=== PATIENT | male | born 1970 | race Caucasian/White ===

== ENCOUNTER → 2023-12-14 13:49 | Outpatient (REF) | payer OTHER, SELFPAY | LOC: HWRCS 13:49 | PROVIDERS: ATTENDING PHYSICIAN Internal Medicine Cardiovascular Disease; FAMILY PHYSICIAN Family Medicine | DX: I10 Essential (primary) hypertension (principal); Z95.810 Presence of automatic (implantable) cardiac defibrillator; I42.8 Other cardiomyopathies | CPT/HCPCS: 93306 ==

== ENCOUNTER 2025-04-25 17:15 | Inpatient (IN) | payer OTHER, SELFPAY ==
[2025-04-25] VITALS (9 sets, daily range): BP systolic 115–140; BP diastolic 68–89; PULSE 98; BMI 35.0; BMI 35.5
[2025-04-25 12:58] LABS: Hematocrit 51.8 % (39.0-52.0); Hemoglobin 17.6 g/dL (13.0-18.0); Mean Corp Hgb Conc. 34.0 g/dL (33.0-37.0); Mean Corpuscular Volume 85.5 fL (80.0-94.0); Platelet Count 177 10^3/uL (130-400); Red Cell Dist. Width 14.4 % (11.5-14.5)
[2025-04-25 13:14] LABS: Nucleated Red Blood Cells % 0 % (-)
[2025-04-25 13:23] LABS: ALT (SGPT) 28 U/L (0-50); AST (SGOT) 49 U/L (17-59); Albumin 4.2 g/dl (3.5-5.0); Alkaline Phosphatase 133 U/L (38-126); Blood Urea Nitrogen 26 mg/dl (9-20); Calcium 9.0 mg/dl (8.4-10.2); Carbon Dioxide 28 mmol/L (22-30); Chloride 96 mmol/L (98-107); Glucose 167 mg/dl (70-99); Potassium 3.8 mmol/L (3.5-5.1); Sodium 132 mmol/L (135-145); Total Protein 8.3 g/dl (6.3-8.2); eGFR 50.88
[2025-04-25 13:24] LABS: COVID-19 Antigen Negative (Negative)
--- NOTE | 2025-04-25 16:07 | ED.GENMED ---
History of Present Illness
General
Chief Complaint: Fever
Source: patient, spouse and family
Exam Limitations: none
Time Seen by Provider: 04/25/25 15:10
Nursing documentation reviewed up to this point in time: agreed with
History of Present Illness
History of Present Illness:
54-year-old male past medical history of CHF, hypertension, diabetes presenting to the concerns of redness and swelling progressing from a left-sided foot wound that has been followed with wound care 3 times per week over the past few months. He
denies increasing redness swelling and warmth of the past few days. Significant he worsened today. Now into the thigh and groin area. Also does feel some generalized weakness fatigue and chills.
Past History
Past History
ED Past Medical History: NIDDM, Other (Chronic right lower leg infection) and Other (Nonischemic cardiomyopathy EF of 30%, hypertension, sleep apnea, appendectomy, previous meniscectomy, hernia repair)
ED Past Surgical History: Other (hernia)
Social History
Tobacco: Smoker (Smokes cigars)
Alcohol: Occasional
Drug: None
Employment: Employed
Family History
Family History: Other (No Significant disease according to the patient)
Review of Systems
Review of Systems
Allergies reviewed?: Yes
All Other Systems: ROS reviewed and negative except as documented in HPI and ROS
Phy Exam
Physical Exam
Physical Exam:
GENERAL: Alert , in no apparent distress
EYE: pupils equal and reactive
NECK: Supple, no significant adenopathy.
ENT: o/p clr, mmm.
CARDIAC: Regular rate and rhythm .
LUNGS: Clear breath sounds bilaterally, no acute respiratory distress, no wheezes/rales/rhonchi
ABDOMEN: Soft, without focal tenderness, no r/g, no cvat
NEUROLOGICAL: Alert and oriented, no focal neuro deficits
SKIN: Redness welling warmth left leg seems to be emanating from a ulcer and wound from the left lateral foot at the midfoot with streaking into the hendrix and medial thigh ending at the groin area. Minimal discomfort but patient does have history of
neuropathy. Warm and dry, skin intact.
MUSCULOSKELETAL: No edema, well perfused.
PSYCH: Normal and appropriate interaction.
Sepsis
Sepsis Screening
Sepsis Assessment: Sepsis
Sepsis Screen
Sepsis Screen: Sepsis
Date: 04/25/25
Time: 16:11
Course
Orders/Labs/Results
Orders:
Orders
04/25/25 12:46
COVID-19 Antigen Urgent
Source: Nasal Swab
Complete Blood Count/With Diff Urgent
Comprehensive Metabolic Panel Urgent
Lactic Acid Q4H
Comment: ON ICE, CANCEL 2ND ORDER IF FIRST LACTIC ACID LEVEL <2
Lactic Acid Q4H
Comment: ON ICE, CANCEL 2ND ORDER IF FIRST LACTIC ACID LEVEL <2
Blood Culture Q20M
NEGRITO Source: Blood/Venous
Specimen Description:
Comment: Urgent from separate sites. If patient screens positive for possible sepsis
INF RAPID [Influenza A+B Rapid Molecular] Urgent
NEGRITO Source: Nasal Swab
Specimen Description:
04/25/25 15:10
Blood Culture Q20M
NEGRITO Source: Blood/Venous
Specimen Description:
Comment: Urgent from separate sites. If patient screens positive for possible sepsis
04/25/25 15:59
Wound Culture [Wound/Abscess/Other Culture] Urgent
NEGRITO Source: Ulcer
Specimen Description:
04/25/25 16:00
Vancomycin [Vancocin] 2,000 mg 0.9% Sodium Chloride 500 ml [Nss] 500 ml IV NOW
04/25/25 16:01
0.9% Sodium Chloride 500 ml [Nss] 500 ml IV BOLUS
04/25/25 16:45
Lactic Acid Urgent
Abnormal Lab Results
04/25/25 04/25/25
12:46 12:46
WBC 23.7 H 10^3/uL
(4.8-10.8)
Abs Immat Gran (auto) 0.1 H 10^3/uL
(0-0.05)
Absolute Neuts (auto) 22.1 H 10^3/uL
(1.4-6.5)
Absolute Lymphs (auto) 0.4 L 10^3/uL
(1.2-3.4)
Absolute Monos (auto) 1.1 H 10^3/uL
(0.1-0.6)
Neutrophils % 92.8 H %
(42.2-75.2)
Lymphocytes % 1.6 L %
(20.5-51.1)
Sodium 132 L mmol/L
(135-145)
Chloride 96 L mmol/L
(98-107)
BUN 26 H mg/dl
(9-20)
Creatinine 1.6 H mg/dL
(0.7-1.3)
Glucose 167 H mg/dl
(70-99)
Lactic Acid 2.9 H mmol/L 2.9 H mmol/L
(0.7-2.0) (0.7-2.0)
Total Bilirubin 3.1 H mg/dl
(0.2-1.3)
Alkaline Phosphatase 133 H U/L
(38-126)
Total Protein 8.3 H g/dl
(6.3-8.2)
04/25/25 12:46
04/25/25 12:46
Vital Signs
Initial and Last Documented VS:
Initial Vital Signs
Temp Pulse Resp BP Pulse Ox
100.3 F 105 22 120/68 95
04/25/25 12:30 04/25/25 12:30 04/25/25 12:30 04/25/25 12:30 04/25/25 12:30
Last Documented Vital Signs
Temp Pulse Resp BP Pulse Ox
98.5 F 109 17 132/80 95
04/25/25 15:14 04/25/25 15:30 04/25/25 15:30 04/25/25 15:10 04/25/25 15:30
MDM/Problems Addressed
MDM/Problems Addressed:
54-year-old male presenting to the emergency department today with concerns of redness welling warmth progressing up the left lower extremity over the past 3 days or so. Does of a chronic wound but denies any significant redness or warmth preceding
the last few days. Mildly tachycardic on arrival temperature of 100.3 white count of 23.7 lactic acid elevated at 2.9 patient was started on fluids and IV antibiotics for likely sepsis. Plan to admit for further treatment and monitoring.
*Pulse Oximetry
SaO2: 95
Oxygen Mode of Delivery: Room air
Patient hypoxic: no (95)
*Critical Care Note
Total Time (30-74mins, 75-104mins- exclusive of procedures): Not Applicable
ED Attending Note
-
Portions of this chart may have been created with voice recognition software.� Occasional wrong word or��sound alike� substitutions may have occurred due to the inherent limitations of voice recognition software.
Discharge Plan
Departure
Patient Disposition: Admit
Date of Disposition: 04/25/25
Time of Disposition: 16:11
Admit to: Med/Surg
Admit to doctor: Kamilla
Presentation/result/management discussed w/ accepting MD/DO: Hospitalist
Patient with high blood pressure during this ER visit?: No
Condition: Good
Covid-19: Not Applicable
Discharge Problem:
Cellulitis of leg
Prescriptions:
No Action
spironolactone 25 MG tablet
25 mg PO DAILY
multivitamin with folic acid [Tab-A-Ellie] 1 TABLET tablet
1 tab PO DAILY
furosemide 40 MG tablet
40 mg PO BID@0800,1600 Qty: 60 11RF
Rx Instructions:
Increase Lasix to 40 mg twice a day
valsartan [Diovan] 160 MG capsule
160 mg PO DAILY Qty: 30 11RF
Rx Instructions:
Increase Diovan to 160 mg (two 80 mg tablets) once a day
metoprolol succinate 100 MG tablet extended release 24 hr
100 mg PO DAILY Qty: 30 11RF
Rx Instructions:
Increase Toprol XL (metoprolol succinate) to 100 mg (two 50 mg tablets) once a day
amiodarone [Pacerone] 200 MG tablet
200 mg PO BID Qty: 60 0RF
Rx Instructions:
Take amiodarone 200 mg twice a day for 1 month then reduce to 200 mg daily thereafter
apixaban [Eliquis] 5 MG tablet
5 mg PO BID Qty: 60 11RF
metoprolol tartrate 50 MG tablet
50 mg PO QPM
Referrals:
Tristen Arevalo DO [Family Provider, Family Practice]
Interventions
Interventions:
*Risk Screen - Suicide Last Done: 04/25/25 12:30
*General Assessment Last Done: 04/25/25 12:30
*ED Influenza Vaccine History Last Done: 04/25/25 12:30
Discharge Date and Time
Print Language: TURKMEN
--- NOTE | 2025-04-25 16:24 | HPS.HSE ---
Family Physician
-
Family Physician: Tristen Arevalo
Chief Complaint
-
L foot wound
Worsening L leg swelling, redness and pain
History of Present Illness
HPI: 54-year-old male with past medical history of CHF s/p ICD, hypertension, NIDDM, HDL, A-fib on Eliquis; p/w progressive redness, swelling and pain of L foot, now to his thigh and groin area.
He has L foot wound and has been following with wound care 3 times per week over the past few months at [facility].
He also c/o generalized weakness, fever and chills. Denies to chest pain, shortness of breath, abdominal pain etc.
Medical History
Past Medical History
Past Medical History: Reports Other
Additional Past Medical History:
CHF s/p ICD,
hypertension,
NIDDM,
HDL,
A-fib on Eliquis
Past Surgical History: Reports Other
Additional Past Surgical History:
lateral L foot I/D
Social History
Tobacco: Former Smoker
Alcohol: Occasional
Personal: Partner
Family History
Family History: Not pertinent
Allergies / Home Medications
Allergies reflects when Allergies were last updated in [facility].
Home Medications with original date entered in [facility]
Allergy/Medication List:
Medications on admission are unable to be verified or confirmed at this time.
Review of Systems
-
Constitutional: Reports See HPI, Fever, Fatigue and Chills
Skin: Reports See HPI and Other (worsening LLE swelling, pain and erythema)
Physical Exam
Vital Signs
Vital Signs
Temp Pulse Resp BP Pulse Ox
36.9 C 109 17 132/80 95
04/25/25 15:14 04/25/25 15:30 04/25/25 15:30 04/25/25 15:10 04/25/25 16:10
Physical Exam
General: Well Developed, Well Nourished, No Apparent Distress, Conversant and Obese
HEENT: NormoCephalic, Moist mucous membranes and Atraumatic
Respiratory: Clear and Non Labored Respirations; No Accessory Resp Muscle Use
Cardiac: S1/S2, Regular Rhythm and Tachycardia; No Murmur or Rub
GI: Soft, Non Tender, Non Distended and Normal Bowel Sounds; No Organomegaly
Rectal: Deferred by Provider
Musculoskeletal: No Clubbing, No Cyanosis and Edema, Left Lower Extremity
Skin: Warm and Rash (L leg redness )
Neuro: Awake and Alert
Psych: Calm and Intact Judgment/Insight
Laboratory Results
-
04/25/25 12:46
04/25/25 12:46
Laboratory Results
Lactic Acid Cancelled 04/25/25 14:14
Total Bilirubin 3.1 mg/dl (0.2-1.3) H 04/25/25 12:46
AST 49 U/L (17-59) 04/25/25 12:46
ALT 28 U/L (0-50) 04/25/25 12:46
Alkaline Phosphatase 133 U/L (38-126) H 04/25/25 12:46
Data Reviewed
-
Lab Data: Labs Reviewed by me
Impression/Plan
-
HPI: 54-year-old male with past medical history of CHF s/p ICD, hypertension, NIDDM, HDL, A-fib on Eliquis; p/w progressive redness, swelling and pain of L foot, now to his thigh and groin area.
He has L foot wound and has been following with wound care 3 times per week over the past few months at [facility].
He also c/o generalized weakness, fever and chills. Denies to chest pain, shortness of breath, abdominal pain etc.
A/P:
# sepsis POA 2/2 LLE cellulitis
s/p 1 L NSS in ED, cautious use of IVF in setting of chronic CHF
Follow blood cultures
s/p vanc in ED, cont cefepime and vanc
Check L foot XR
Also check arterial US (although good palpable dorsalis pedis felt on exam), and venous US (noted patient on Eliquis prior to admission hence less likely to have DVT)
Wound care CS
ID CS
Podiatry CS. D/w Dr Stewart, we can hold [employer] Eliquis for now in case pt needs any procedure.
Monitor WBC
# L knee swelling
ortho CS to eval for arthrocentesis
# MARY ANN
SCr 1.6 on admission, baseline at 1.1
s/p 1 L NSS bolus,
Hold [employer] Lasix, Valsartan
Monitor SCr
# Hyponatremia
Sodium level 132 on admission, cont to monitor
# Chronic CHF s/p ICD
Hold [employer] lasix, Valsartan with MARY ANN
daily weight if able
# hypertension
Cont [employer] BB with hold parameter
Hold [employer] lasix, Valsartan
# NIDDM
cover with ISS
Carb control diet
# Paroxysmal A-fib on Eliquis
Cont [employer] BB with hold parameter
Cont [employer] Amio
Holding [employer] Eliquis in case pt needs any procedure.
DVT ppx: Holding [employer] Eliquis , cover with HSQ for now
FC
[2025-04-25] MEDS: NSS 500 IV (16:52)
[2025-04-25] MEDS: VANCOCIN 540 MG IV (16:53)
--- NOTE | 2025-04-25 17:18 | WOUNDNOTE ---
R FOOT (LATERAL)(with photo flash)
--- NOTE | 2025-04-25 17:18 | WOUNDNOTE ---
L FOOT (LATERAL)(with photo flash)
--- NOTE | 2025-04-25 17:21 | WOUNDNOTE ---
L PLANTAR LATERAL HEEL
--- NOTE | 2025-04-25 17:23 | WOUNDNOTE ---
[facility] RN note: Patient admitted with L leg cellulitis, L foot wound, L plantar heel ulcer. Patient's girlfriend Loreto present and stated patient's been on his feet more since he is selling his house. She stated patient has shoes with off loading
inserts. He is followed by [facility] wound specialists 3 times a week.
See H&P for complete history.
PMH: I+D L foot plantar abscess at [facility] during admission 01/24-01/29/25, chronic foot wound, venous insufficiency, RLE ulcers, pacer, defibrillator, R 2nd toe amp d/t infection, a fib (Eliquis), NIDDM, CHF, HTN, obesity.
Wound Location and type/assessment: Patient admitted with: L lateral foot full thickness diabetic ulcer about 1.2cm deep to muscle or deeper. L plantar shallow appearing ulcer with L foot/heel swelling (plantar heel blister?). L lateral calf dry
scabbed venous ulcer. R hendrix with 2 dry scabbed ulcers without drainage. L leg diffuse erythema from toes to upper medial thigh. L knee tender and 'spongy' to touch. +Pedal pulses palpated (L>R). +2 L leg edema. Buttocks skin blanchable red. Patient
appears flushed. He answers questions appropriately.
Pressure redistribution devices in place: ED stretcher. Patient can turn self in bed. Heels off distal end of stretcher mattress.
Plan: Patient seen with Dr. Mcconnell and recommended podiatry consult to evaluate/manage L foot/heel wounds, imaging of L foot. Dr. Mcconnell stated she is planning to consult retrieval specialist and ID. After Dr. Mcconnell left also reported to Dr. Mcconnell via tiger text
re: patient's L knee tender and 'spongy' to touch; defer to hospitalist re: imaging, Ortho consult. Patient's girlfriend Loreto and patient stated current wound care has been strip packing to L foot daily, protective dressing to R hendrix scabbed ulcers
(change 3 times a week) and he wears knee high Tubigrip. Heels off bed with pillows.
Care plan to be updated and will follow peripherally as needed.
[2025-04-25] MEDS: TYLENOL 650 MG PO ×2 (18:42→19:52)
[2025-04-25 20:01] LABS: Glucose - Point of Care 143 mg/dl (70-99)
--- NOTE | 2025-04-25 20:04 | CON.ORTHO ---
Consultation
-
Date/Time Consultation Requested: 25APR2025 17:08
Date/Time Consultation Performed: 25APR2025 20:00
Requesting Provider: Sisi Mcconnell
Performing Provider: Keith Angeles MD
Reason for Consultation: left leg cellulitis
Consultation - Orthopedics
History
Patient is a 54-year-old male with past medical history of CHF status post ICD, hypertension, NIDDM, A-fib on Eliquis complaining of several days of progressive swelling and erythema in the left lower extremity. He states he has a wound that is
chronic on the lateral aspect of his left foot that is being managed by wound care. He states over the last several days his foot started become erythematous and tender to the touch. He states that time progressed the erythema progressed
proximally up to his knee, and now is up to the medial aspect of his proximal thigh. He was admitted to the medical service and vancomycin and cefepime were started due to cellulitis and sepsis. Orthopedics was consulted to rule out left knee
septic arthritis.
The patient states he has no pain in the actual knee and has no difficulty with range of motion of the knee. He has no deficits in strength or sensation about the knee. He denies any prior injuries or surgeries to the left knee but did undergo a
contralateral anterior cruciate ligament reconstruction many years ago.
LLE:
Erythema and swelling about LLE up to medial proximal thigh, outlined with skin marker
No TTP knee, no effusion
AROM 0-130 flexion without pain or difficulty
No varus/valgus instability
Negative Consuelo's exam, negative anterior/posterior drawer
Negative patellar grind
XRay of foot performed in the ED today negative for fracture or dislocation, no obvious acute osseous abnormalities
Allergies / Home Medications
Allergy/AdvReac Type Severity Reaction Status Date / Time
No Known Allergies Allergy Verified 04/25/25 12:30
�Medication �Instructions �Recorded
multivitamin with folic acid 400 1 tab PO DAILY Supplement 06/12/20
mcg tablet (Tab-A-Ellie)
spironolactone 25 mg tablet 25 mg PO DAILY Fluid 06/12/20
retention/Swelling
apixaban 5 mg tablet (Eliquis) 5 mg PO BID Arrhythmia #60 tabs 06/17/20
furosemide 40 mg tablet 40 mg PO BID@0800,1600 Heart 06/17/20
Failure #60 tabs
valsartan 160 mg capsule (Diovan) 160 mg PO DAILY Heart Failure #30 06/17/20
tabs
metoprolol tartrate 50 mg tablet 50 mg PO QPM 07/28/20
amiodarone 200 mg tablet (Pacerone) 50 mg PO DAILY Arrhythmia 04/25/25
gabapentin 300 mg capsule 300 mg PO DAILY PRN pain 04/25/25
losartan 50 mg tablet 50 mg PO DAILY 04/25/25
metoprolol succinate 100 mg 25 mg PO DAILY Heart Failure 04/25/25
tablet,extended release 24 hr
Vital Signs / Lab Results
Temp Pulse Resp BP Pulse Ox
99.6 F 119 22 122/75 94
04/25/25 19:47 04/25/25 19:47 04/25/25 19:47 04/25/25 19:47 04/25/25 19:47
04/25/25 12:46
04/25/25 12:46
Assessment / Plan
Mr. Cohen is a 54-year-old male with a left lower extremity cellulitis
-No acute orthopaedic intervention indicatied at this time, physical exam not concerning for septic arthritis
-Management and antibiotics per primary
Orthopaedics may be reconsulted as necessary
[2025-04-25] MEDS: STERILE WATER FOR INJECTION 10 ML IV (20:26)
[2025-04-25] MEDS: MAXIPIME 1000 MG IV (20:26)
[2025-04-25] MEDS: TOPROL XL 25 MG PO (20:27)
--- NOTE | 2025-04-25 21:20 | PHA.VAN.IN ---
Assessment
- Assessment
Renal Function: SCR Appears Elevated from baseline
Concomitant Antimicrobials: CEFEPIME
Plan
- Plan
Initial / Loading Dose: VANCOMYCIN 2000 MG IV ~ 1700
Maintenance Regimen: Dosing by random level.
Monitoring: A random level is scheduled on 04/26 w. am labs. Pharmacy will follow.
Pharmacokinetics Vancomycin I
- -
Patient Age: 54
Patient Sex: Male
Vancomycin Day #: 1
Indication: Skin And Soft Tissue
Requesting Provider: Dr Jayesh Guy
Height / Weight:
Height 6 ft
Actual Weight 118.529 kg
Pertinent Past Medical History: NIDDM pt L foot wound
- Vital Signs / Lab Results
Temp Pulse Resp BP Pulse Ox
99.6 F 119 22 122/75 94
04/25/25 19:47 04/25/25 20:27 04/25/25 19:47 04/25/25 20:27 04/25/25 19:47
Lab Results - Hematology
04/25/25
12:46
WBC 23.7 H
Lab Results - Chemistry
04/25/25
12:46
BUN 26 H
Creatinine 1.6 H
Albumin 4.2
04/25/25 04/25/25 04/25/25
12:46 12:46 14:14
Lactic Acid 2.9 H 2.9 H Cancelled
04/25/25 04/25/25
16:35 19:36
Lactic Acid 2.3 H 1.9
Microbiology Results
04/25/25 16:35 Gram Stain - Preliminary
Ulcer
04/25/25 12:46 Influenza Types A & B (EMILI) - Final
Nasal Swab Negative for Influenza A & B, NAAT
Negative results must be combined with clinical observations
and patient history.
Nucleic Acid Amplification test (NAAT)performed on the
[employer] platform.
[2025-04-26] VITALS (9 sets, daily range): BP systolic 109–129; BP diastolic 73–82; PULSE 103; O2SAT 98
[2025-04-26] MEDS: HEPARIN SC (00:25)
[2025-04-26] MEDS: ANESTHETIC LOZENGE 1 LOZENGE PO (03:23)
[2025-04-26 07:59] LABS: Hematocrit 44.2 % (39.0-52.0); Hemoglobin 15.1 g/dL (13.0-18.0); Mean Corp Hgb Conc. 34.2 g/dL (33.0-37.0); Mean Corpuscular Volume 85.5 fL (80.0-94.0); Nucleated Red Blood Cells % 0 % (-); Platelet Count 129 10^3/uL (130-400); Red Cell Dist. Width 14.5 % (11.5-14.5)
[2025-04-26 08:30] LABS: Glucose - Point of Care 138 mg/dl (70-99)
[2025-04-26] MEDS: NOVOLOG FLEXPEN-LOW RESISTANCE SC (08:32)
[2025-04-26 08:33] LABS: ALT (SGPT) 21 U/L (0-50); AST (SGOT) 36 U/L (17-59); Albumin 3.2 g/dl (3.5-5.0); Alkaline Phosphatase 118 U/L (38-126); Blood Urea Nitrogen 23 mg/dl (9-20); Calcium 8.1 mg/dl (8.4-10.2); Carbon Dioxide 29 mmol/L (22-30); Chloride 99 mmol/L (98-107); Estimated Creatinine Clearance 112 ml/min; Glucose 118 mg/dl (70-99); Potassium 3.5 mmol/L (3.5-5.1); Sodium 132 mmol/L (135-145); Total Protein 6.5 g/dl (6.3-8.2); eGFR > 60.00
[2025-04-26] MEDS: TOPROL XL 25 MG PO ×2 (08:34→20:19)
[2025-04-26] MEDS: MAXIPIME 1000 MG IV ×2 (08:35→20:19)
[2025-04-26] MEDS: PACERONE 50 MG PO (08:35)
[2025-04-26] MEDS: STERILE WATER FOR INJECTION 10 ML IV ×2 (08:35→20:19)
[2025-04-26] MEDS: HEPARIN 5000 UNITS SC (08:35)
--- NOTE | 2025-04-26 08:35 | PHA.VAN.FU ---
Vancomycin Assessment / Plan
- Assessment
Renal Function: SCR Decreasing (1.6-->1.0)
WBC's are: Trending Down
In the past 24 hrs, patient has been: Afebrile
Concomitant Antimicrobials: CEFEPIME
- Assessment - Therapeutic Drug Monitoring
Random Level: 8.4
- Dosing Plan
Adjust Regimen to: 1500MG Q12H
New Regimen Predicts: AUC (514), Peak (32.5), Trough (13.0)
- Monitoring Plan
No level(s) ordered at this time: CONSIDER AT STEADY STATE
- Follow Up
Pharmacy will continue to follow.
Vancomycin Follow UP
- -
Patient Age: 54
Patient Sex: Male
Vancomycin Day #: 2
Indication: Skin And Soft Tissue
Requesting Provider: Dr Jayesh Guy
Height / Weight:
Height 6 ft
Actual Weight 118.529 kg
Pertinent Past Medical History: NIDDM pt L foot wound
- Vital Signs / Lab Results
Temp Pulse Resp BP Pulse Ox
100.0 F 109 20 120/73 95
04/26/25 08:25 04/26/25 08:25 04/26/25 08:25 04/26/25 08:25 04/26/25 08:25
Lab Results - Hematology
04/25/25 04/26/25
12:46 07:30
WBC 23.7 H 19.0 H
Lab Results - Chemistry
04/25/25 04/26/25
12:46 07:29
BUN 26 H 23 H
Creatinine 1.6 H 1.0
Estimated Creat Clear 112
Albumin 4.2 3.2 L
04/25/25 04/25/25 04/25/25
12:46 12:46 14:14
Lactic Acid 2.9 H 2.9 H Cancelled
1104/25/25 04/25/25
16:35 19:36 23:12
Lactic Acid 2.3 H 1.9 Cancelled
04/26/25 04/26/25
03:12 07:12
Lactic Acid Cancelled Cancelled
Microbiology Results
04/25/25 16:35 Gram Stain - Preliminary
Ulcer
04/25/25 12:46 Influenza Types A & B (EMILI) - Final
Nasal Swab Negative for Influenza A & B, NAAT
Negative results must be combined with clinical observations
and patient history.
Nucleic Acid Amplification test (NAAT)performed on the
[employer] platform.
Therapeutic Drug Monitoring
Random Vancomycin 8.4 ug/ml 04/26/25 07:29
[2025-04-26] MEDS: NEURONTIN 300 MG PO (08:39)
[2025-04-26] MEDS: TYLENOL 650 MG PO ×2 (08:39→17:56)
[2025-04-26 09:22] LABS: Glycohemoglobin (HgbA1c) 6.0 % (4.0-5.9)
--- NOTE | 2025-04-26 09:58 | CON.MD ---
Consultation - Medical
-
CC: L foot wound
Worsening L leg swelling, redness and pain
History of Present Illness:
HPI: 54-year-old diabetic male with past medical history of CHF s/p ICD, hypertension, NIDDM, HDL, A-fib on Eliquis; p/w progressive redness, swelling and pain of L foot, now to his thigh and groin area.
He has L foot wound and has been following with wound care 3 times per week over the past few months at [place]. 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
He was admitted w/ c/o generalized weakness, fever and chills- which have improved since starting IV abt.
Denies to chest pain, shortness of breath, + calf pain and apetite loss
Medical History
Past Medical History
Past Medical History:
Additional Past Medical History:
CHF s/p ICD
hypertension
NIDDM
HDL
A-fib on Eliquis
LB problems/ radiculopathy
Past Surgical History: amp right 2nd toe
Additional Past Surgical History:
lateral L foot I/D @ Wound care center
Social History
Tobacco: Former Smoker
Alcohol: Occasional
Personal: Partner
Family History
Family History: Not pertinent
Allergies / Home Medications
Allergies reflects when Allergies were last updated in [employer]
Home Medications with original date entered in [employer]
Allergy/Medication List:
Medications on admission are unable to be verified or confirmed at this time.
Review of Systems
-
Constitutional: Reports See HPI, Fever, Fatigue and Chills
Skin: Reports See HPI and Other (worsening LLE swelling, pain and erythema)
Physical Exam
Consultation
-
Date/Time Consultation Requested: 04/25/2025 @ 1647
Date/Time Consultation Performed: 04/26/2025 @ 0900
Requesting Provider: Dr. Sisi Mcconnell
Performing Provider: Dr Sydney Stewart
Reason for Consultation: Wounds to LEs, Cellulitis LLE
Vital Signs / Labs
-
Vital Signs and Labs:
Temp Pulse Resp BP Pulse Ox
100.0 F 109 20 120/73 95
04/26/25 07:25 04/26/25 07:25 04/26/25 07:25 04/26/25 07:25 04/26/25 07:25
04/26/25 07:30
04/26/25 07:29
04/25/25 04/25/25 04/25/25
12:46 12:46 16:35
WBC 23.7 H
Plt Count
MPV
Abs Immat Gran (auto) 0.1 H
Absolute Neuts (auto) 22.1 H
Absolute Lymphs (auto) 0.4 L
Absolute Monos (auto) 1.1 H
Immature Gran %
Neutrophils % 92.8 H
Lymphocytes % 1.6 L
Sodium 132 L
Chloride 96 L
BUN 26 H
Creatinine 1.6 H
Glucose 167 H
Hemoglobin A1c
Lactic Acid 2.9 H 2.9 H 2.3 H
Calcium
Total Bilirubin 3.1 H
Alkaline Phosphatase 133 H
Total Protein 8.3 H
Albumin
POC Glucose
04/25/25 04/26/25 04/26/25
20:00 07:29 07:30
WBC 19.0 H
Plt Count 129 L D
MPV 10.6 H
Abs Immat Gran (auto) 0.1 H
Absolute Neuts (auto) 16.9 H
Absolute Lymphs (auto) 0.5 L
Absolute Monos (auto) 1.3 H
Immature Gran % 0.7 H
Neutrophils % 89.0 H
Lymphocytes % 2.6 L
Sodium 132 L
Chloride
BUN 23 H
Creatinine
Glucose 118 H
Hemoglobin A1c 6.0 H
Lactic Acid
Calcium 8.1 L
Total Bilirubin 1.9 H D
Alkaline Phosphatase
Total Protein
Albumin 3.2 L
POC Glucose 143 H
04/26/25
08:28
WBC
Plt Count
MPV
Abs Immat Gran (auto)
Absolute Neuts (auto)
Absolute Lymphs (auto)
Absolute Monos (auto)
Immature Gran %
Neutrophils %
Lymphocytes %
Sodium
Chloride
BUN
Creatinine
Glucose
Hemoglobin A1c
Lactic Acid
Calcium
Total Bilirubin
Alkaline Phosphatase
Total Protein
Albumin
POC Glucose 138 H
XRAYS - negative for OM LLE, no gas
CX- pending
Allergies
-
Allergies
Allergy/AdvReac Type Severity Reaction Status Date / Time
No Known Allergies Allergy Verified 04/25/25 12:30
Physical Exam
Vital Signs
Vital Signs
Temp Pulse Resp BP Pulse Ox
100.0 F 109 20 120/73 95
04/26/25 07:25 04/26/25 07:25 04/26/25 07:25 04/26/25 07:25 04/26/25 07:25
Physical Exam
General: AAO x 3, NAD
LE focused exam:
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
DERM: Cellulitis LLE from midfoot to left thigh (area is improved from where marked in ED) - Wound to the lateral foot measures approx 1.3cm L x 0.6cm W x 1.5cm deep/undermining to the lateral border. Wound bed is mainly granular w/keratosis to
periphery. There is no malodor or purulence expressed. Wound probes to deep fascia, no bone exposed or palpable. Wound left lateral heel 1cm L x 0.2cmwide x 0.2cm deep w/o odor, drainage or signs of infection. Trauma Vs Stasis wounds RLE x
2-fibrogranular larger wound w/slough but w/o signs of infection
ORTHO: No gross deformities to feet, + Pain left leg only
NEURO: Absent protective sensation to B/L feet. muscle strength 5/5. muscle tone is good
Assessemnt/Plan
-
1-LLE cellulitis -On IV abt, cx pending
2-NIDDM with Peripheral neuropathy and LOPS
3-Chronic FT, neurotrophic non healing diabetic foot wound to the Left lateral foot- probes to deep fascia but not bone, no abscess therefore no surgery required.
-Bedside debridement was preformed with Sterile scalpel non excisional through the epidermis, dermis into sq and fascia. Wound was cleansed and wound care orders placed on chart.
- Limited WB in post op shoe LLE
- Elevate LLE
4-Paroxysmal A-fib on Eliquis- ok to restart, no surgery planned
5-Stasis ulcers RLE - clean and uninfected. Resume wound care as ordered
--- NOTE | 2025-04-26 10:12 | W.PN.HOSP.TC ---
Today's Communication/Plan
-
see A/P
Assessment / Plan
Assessment / Plan
HPI: 54-year-old male with past medical history of CHF s/p ICD, hypertension, NIDDM, HDL, A-fib on Eliquis; p/w progressive redness, swelling and pain of L foot, now to his thigh and groin area.
He has L foot wound and has been following with wound care 3 times per week over the past few months at [place].
He also c/o generalized weakness, fever and chills. Denies to chest pain, shortness of breath, abdominal pain etc.
A/P:
# sepsis POA 2/2 LLE cellulitis
# Lactic acidosis POA, resolved
s/p 1 L NSS in ED, cautious use of IVF in setting of chronic CHF
Follow blood cultures
Follow wound culture
s/p vanc in ED, cont cefepime and vanc
L foot XR negative for osteomyelitis.
LLE venous US negative for DVT
Can follow arterial US for completeness sake (although good palpable dorsalis pedis felt on exam)
s/p bedside I/D 04/26 by unit support representative, per Dr Stewart, wound appears clean, no further surgery planned
Ok to resume FIXED INCOME TRADING VICE PRESIDENT Eliquis
Wound care on board
ID CSed
# L knee swelling, 2/2 LLE cellulitis
Appreciate ortho input, No acute orthopaedic intervention indicated as physical exam not concerning for septic arthritis
# MARY ANN , resolved
s/p 1 L NSS bolus,
SCr 1.6 on admission -> 1.0 today, baseline at 1.1
Cont to hold FIXED INCOME TRADING VICE PRESIDENT Lasix, Valsartan
Monitor SCr
# Hyponatremia
Sodium level 132 today
# Chronic CHF s/p ICD
Cont to hold FIXED INCOME TRADING VICE PRESIDENT Lasix, Valsartan today
Resume FIXED INCOME TRADING VICE PRESIDENT lasix tmr
daily weight if able
# hypertension
Cont FIXED INCOME TRADING VICE PRESIDENT BB with hold parameter
Cont to hold FIXED INCOME TRADING VICE PRESIDENT Lasix, Valsartan today
Resume FIXED INCOME TRADING VICE PRESIDENT lasix tmr
# NIDDM
cover with ISS
Carb control diet
# Paroxysmal A-fib on Eliquis
Cont FIXED INCOME TRADING VICE PRESIDENT BB with hold parameter
Cont FIXED INCOME TRADING VICE PRESIDENT Amio
resumed FIXED INCOME TRADING VICE PRESIDENT Eliquis
DVT ppx: resumed FIXED INCOME TRADING VICE PRESIDENT Eliquis, stop HSQ
FC
DW RN
Anticipated Discharge: 24 - 48 hours
Subjective/Interval History
-
Date of Service: April 26, 2025
Objective Data
-
Labs:
Laboratory Results
04/26/25 04/26/25
07:29 07:30
WBC 19.0 H
Hgb 15.1
Hct 44.2
Plt Count 129 L D
Sodium 132 L
Potassium 3.5
Chloride 99
Carbon Dioxide 29
BUN 23 H
Creatinine 1.0
Glucose 118 H
Calcium 8.1 L
Total Bilirubin 1.9 H D
AST 36
ALT 21
Alkaline Phosphatase 118
Vital Signs:
Vital Signs
Temp Pulse Resp BP Pulse Ox
37.8 C 109 20 120/73 95
04/26/25 07:25 04/26/25 07:25 04/26/25 07:25 04/26/25 07:25 04/26/25 07:25
I&O
04/25/25 04/26/25 04/27/25
06:59 06:59 06:59
Intake Total 960 / 960
Output Total 400 / 400
Balance 560 / 560
Review of Systems
-
History Source: Patient
Skin: Reports Other (left leg rash )
Physical Exam
-
General: Well Developed, Well Nourished, No Apparent Distress, Comfortable, Conversant and Obese; Negative Respiratory Distress
HEENT: Normocephalic, Atraumatic, Nose Appears Normal and Ears Appear Normal; Negative Oxygen
Respiratory: Clear to Auscultation and Non Labored Respirations; Negative Accessory Resp Muscle Use
Cardiac: Regular Rhythm and S1/S2
GI: Soft, Nontender, Nondistended and Normal Bowel Sounds
Skin: Lesions (LLE rash and L foot wound, see wound care note)
Neuro: Awake, Alert, Oriented and AO x 3
Psych: Calm and Intact Judgement/Insight
Data Reviewed
-
Diagnostic Radiology: Report Reviewed by me
Ultrasound: Report Reviewed by me and Discussed with Patient
Labs: Labs Reviewed by me
[2025-04-26] MEDS: VANCOCIN 530 MG IV ×2 (11:04→17:41)
[2025-04-26] MEDS: BACTROBAN 2% OINTMENT 1 APPLIC TOPICAL (11:05)
[2025-04-26] MEDS: KCL 40 MEQ PO (11:05)
--- NOTE | 2025-04-26 12:07 | CON.ID ---
Consultation
-
Date/Time Consultation Requested: 04/25/2025 1649
Date/Time Consultation Performed: 04/26/2025 1200
Requesting Provider: Dr. Mcconnell
Performing Provider: Dr. Londono
Reason for Consultation: Cellulitis
Chief Complaint / Past History
History of Present Illness
Dileep Acevedo is a 54-year-old man being evaluated the request of Dr. Mcconnell in regards to left lower extremity cellulitis. History is obtained from chart review, along with patient interview.
The patient has a significant past medical history of lower extremity venous insufficiency, along with cardiomyopathy.
He has a history of a left lateral foot chronic wound, and has been followed at [facility], and more recently at [facility]. He reports that in late December he was admitted to the [facility] for an infection of the left
foot that susan after debridement. He notes that he was in the hospital for approximately 1 week. Since that time he has been followed in the [facility] wound center closely. He reports he was in his usual state of health until approximately 4
to 5 days ago when he noted increasing erythema and swelling of the left leg. This progressed to some tracking of erythema into the medial left thigh. He was seen at a local urgent care center, but directed to the ER for further workup.
At admission, he was found to have a marked leukocytosis (23K). He admits to fevers to 102 degrees prior to admission, along with shaking chills. He has been started on empiric antibiotics, and Infectious Diseases is asked to comment upon further
antimicrobial management.
At this time, he reports some improvement in the left lower extremity discomfort. He denies any inguinal adenopathy.
Past History
Additional Past Medical History:
DM type II
Chronic right lower leg section
Cardiomyopathy
HTN
Sleep apnea
A-fib (Eliquis)
Additional Past Surgical History:
Appendectomy
Hernia repair
AICD
Allergy History:
No Known Allergies Allergy (Verified 04/25/25 12:30)
Medications Reviewed: Yes
Current Antibiotics:
Vancomycin (dosing per pharmacy
Cefepime 1 gm IV q.12 hours
Social History
Tobacco: Former Smoker
Alcohol: Occasional
Drug: None
Personal: Partner
Living: With Family
Review of Systems
Vital Signs
Temp Pulse Resp BP Pulse Ox
98.7 F 100 20 113/73 95
04/26/25 11:03 04/26/25 11:03 04/26/25 11:03 04/26/25 11:03 04/26/25 11:03
Physical Exam
Physical Exam
Constitutional: No Acute Distress, Comfortable and Non-toxic
Eyes: No Conjunctival Hemorrhage and Sclera Anicteric
Oral: No Thrush and No Ulcers
Cardiovascular: Regular Rate and S1/S2; Negative S3/S4
Pulmonary: Clear; Negative Wheezes or Rales
Gastrointestinal: Soft, Non Tender, Non Distended and Normal Bowel Sounds
Genito-Urinary: Negative Elder
Extremities: Edema (4+ left lower extremity edema) and Other (Left lower extremity with marked erythema from foot to proximal knee area, with some extension onto the medial thigh.)
Skin: Warm and Dry
Wound: Other (Left lateral foot wound present. No periwound erythema. Probe to 1.5 cm. No probe to bone.)
Neurological: Awake and Alert
Psychological: Calm
Lab / Diagnostic Study Results
04/26/25 07:30
04/26/25 07:29
Abs Immat Gran (auto) 0.1 10^3/uL (0-0.05) H 04/26/25 07:30
Absolute Neuts (auto) 16.9 10^3/uL (1.4-6.5) H 04/26/25 07:30
Absolute Lymphs (auto) 0.5 10^3/uL (1.2-3.4) L 04/26/25 07:30
Absolute Monos (auto) 1.3 10^3/uL (0.1-0.6) H 04/26/25 07:30
Absolute Basos (auto) 0.1 10^3/uL (0-0.2) 04/26/25 07:30
Immature Gran % 0.7 % (0-0.5) H 04/26/25 07:30
Neutrophils % 89.0 % (42.2-75.2) H 04/26/25 07:30
Lymphocytes % 2.6 % (20.5-51.1) L 04/26/25 07:30
Monocytes % 7.1 % (1.7-9.3) 04/26/25 07:30
Eosinophils % 0.3 % (0-6) 04/26/25 07:30
Basophils % 0.3 % (0-2) 04/26/25 07:30
Lactic Acid Cancelled 04/26/25 07:12
Microbiology Results
Micro:
04/25/25 20:56 MRSA Screen - Pending
Nose
04/25/25 16:35 Wound Culture - Pending
Ulcer Gram Stain - Preliminary
04/25/25 15:10 Blood Culture - Pending
Blood/Venous
04/25/25 12:46 Influenza Types A & B (EMILI) - Final
Nasal Swab Negative for Influenza A & B, NAAT
Negative results must be combined with clinical observations
and patient history.
Nucleic Acid Amplification test (NAAT)performed on the
[email or web address] platform.
04/25/25 12:46 Blood Culture - Pending
Blood/Venous
Imaging:
04/25/2025 Duplex ultrasound left lower extremity: no evidence of DVT. Multiple lymph nodes present in the left groin, with the largest measuring 3.5 x 2.0 x 2.0. Moderate subcutaneous edema seen within the left calf. Please see full dictation
for additional detail.
04/25/2025 X-ray left foot: plantar and lateral soft tissue air adjacent to the proximal fifth metatarsal bone compatible with history of soft tissue wound. No radiographic findings to suggest osteomyelitis. No evidence of radiopaque foreign body.
Assessment / Plan
Left lower extremity cellulitis
- Portal of entry likely chronic left lateral foot wound
Leukocytosis
Fever
Elevated bilirubin
DM type II
Chronic right lower leg section
Cardiomyopathy
HTN
Sleep apnea
A-fib (Eliquis)
Recommendations:
Continue with current empiric antibiotics (vancomycin, cefepime).
Wound culture currently pending, although it is a superficial wound culture, and results need to be interpreted in that context.
Plain film imaging of the foot does not indicate any osteomyelitis in this chronic wound. No need for MRI imaging at present, although will likely need serial imaging of the foot to assess for any bony changes.
Continue with left leg elevation to control edema.
Monitor white count and temperature curve.
Monitor blood cultures.
Further recommendations as additional data is returned.
[2025-04-26 12:55] LABS: Glucose - Point of Care 162 mg/dl (70-99)
[2025-04-26] MEDS: NOVOLOG FLEXPEN-LOW RESISTANCE 1 UNITS SC (13:38)
[2025-04-26 17:48] LABS: Glucose - Point of Care 209 mg/dl (70-99)
[2025-04-26] MEDS: NOVOLOG FLEXPEN-LOW RESISTANCE 2 UNITS SC (17:52)
[2025-04-26] MEDS: ELIQUIS 5 MG PO (20:18)
[2025-04-26] MEDS: ROBITUSSIN DM 10 ML PO (20:19)
[2025-04-26 21:37] LABS: Glucose - Point of Care 135 mg/dl (70-99)
[2025-04-27] VITALS (7 sets, daily range): BP systolic 115–144; BP diastolic 71–84; BMI 35.8
[2025-04-27] MEDS: TYLENOL 650 MG PO ×4 (03:41→22:15)
[2025-04-27] MEDS: VANCOCIN 530 MG IV ×2 (05:06→16:59)
[2025-04-27 07:40] LABS: Hematocrit 40.8 % (39.0-52.0); Hemoglobin 13.7 g/dL (13.0-18.0); Mean Corp Hgb Conc. 33.6 g/dL (33.0-37.0); Mean Corpuscular Volume 86.4 fL (80.0-94.0); Nucleated Red Blood Cells % 0 % (-); Platelet Count 142 10^3/uL (130-400); Red Cell Dist. Width 14.3 % (11.5-14.5)
[2025-04-27 07:44] LABS: Blood Urea Nitrogen 17 mg/dl (9-20); Calcium 8.1 mg/dl (8.4-10.2); Carbon Dioxide 26 mmol/L (22-30); Chloride 101 mmol/L (98-107); Estimated Creatinine Clearance > 125 ml/min; Glucose 159 mg/dl (70-99); Magnesium 2.4 mg/dl (1.6-2.3); Potassium 3.5 mmol/L (3.5-5.1); Sodium 132 mmol/L (135-145); eGFR > 60.00
--- NOTE | 2025-04-27 07:58 | PHA.VAN.FU ---
Vancomycin Assessment / Plan
- Assessment
Renal Function: Stable
WBC's are: Trending Down
In the past 24 hrs, patient has been: Febrile (102.9F)
Concomitant Antimicrobials: CEFEPIME
- Dosing Plan
Continue: 1500MG Q12H
- Monitoring Plan
Peak Level: 04/27 @2130
Trough Level: 04/28 @0530
- Follow Up
Pharmacy will continue to follow.
Vancomycin Follow UP
- -
Patient Age: 54
Patient Sex: Male
Vancomycin Day #: 3
Indication: Skin And Soft Tissue
Requesting Provider: Dr Jayesh Guy
Height / Weight:
Height 6 ft
Actual Weight 119.55 kg
Pertinent Past Medical History: NIDDM pt L foot wound
- Vital Signs / Lab Results
Temp Pulse Resp BP Pulse Ox
101.6 F H 109 24 116/76 96
04/27/25 03:44 04/27/25 03:44 04/27/25 03:44 04/27/25 03:44 04/27/25 03:44
Lab Results - Hematology
04/25/25 04/26/25 04/27/25
12:46 07:30 06:57
WBC 23.7 H 19.0 H 16.7 H
Lab Results - Chemistry
04/25/25 04/26/25 04/27/25
12:46 07:29 06:58
BUN 26 H 23 H 17
Creatinine 1.6 H 1.0 0.9
Estimated Creat Clear 112 > 125
Albumin 4.2 3.2 L
04/25/25 04/25/25 04/25/25
12:46 12:46 14:14
Lactic Acid 2.9 H 2.9 H Cancelled
04/25/25 04/25/25 04/25/25
16:35 19:36 23:12
Lactic Acid 2.3 H 1.9 Cancelled
04/26/25 04/26/25
03:12 07:12
Lactic Acid Cancelled Cancelled
Microbiology Results
04/25/25 15:10 Blood Culture - Preliminary
Blood/Venous No Growth in 24 hours- Final report to follow
04/25/25 16:35 Wound Culture - Preliminary
Ulcer Gram Stain - Preliminary
04/25/25 12:46 Blood Culture - Preliminary
Blood/Venous No Growth in 24 hours- Final report to follow
04/25/25 12:46 Influenza Types A & B (EMILI) - Final
Nasal Swab Negative for Influenza A & B, NAAT
Negative results must be combined with clinical observations
and patient history.
Nucleic Acid Amplification test (NAAT)performed on the
[employer] platform.
Therapeutic Drug Monitoring
Random Vancomycin 8.4 ug/ml 04/26/25 07:29
[2025-04-27 08:05] LABS: Glucose - Point of Care 150 mg/dl (70-99)
[2025-04-27] MEDS: NOVOLOG FLEXPEN-LOW RESISTANCE 1 UNITS SC ×2 (08:36→12:36)
[2025-04-27] MEDS: MAXIPIME 1000 MG IV ×2 (08:37→19:58)
[2025-04-27] MEDS: STERILE WATER FOR INJECTION 10 ML IV ×2 (08:41→19:58)
[2025-04-27] MEDS: TOPROL XL 25 MG PO ×2 (08:41→19:57)
[2025-04-27] MEDS: PACERONE 50 MG PO (08:41)
[2025-04-27] MEDS: ELIQUIS 5 MG PO ×2 (08:42→19:58)
[2025-04-27] MEDS: LASIX 40 MG PO ×2 (08:42→16:13)
--- NOTE | 2025-04-27 08:58 | W.PN.HOSP.TC ---
Today's Communication/Plan
-
see A/P
Assessment / Plan
Assessment / Plan
HPI: 54-year-old male with past medical history of CHF s/p ICD, hypertension, NIDDM, HDL, A-fib on Eliquis; p/w progressive redness, swelling and pain of L foot, now to his thigh and groin area.
He has L foot wound and has been following with wound care 3 times per week over the past few months at [place].
He also c/o generalized weakness, fever and chills. Denies to chest pain, shortness of breath, abdominal pain etc.
A/P:
# sepsis POA 2/2 LLE cellulitis
# Lactic acidosis POA, resolved
s/p 1 L NSS in ED, cautious use of IVF in setting of chronic CHF
blood cultures so far negative
Follow wound culture
s/p vanc in ED, cont cefepime and vanc
L foot XR negative for osteomyelitis.
LLE venous US negative for DVT
Can follow arterial US for completeness sake (although good palpable dorsalis pedis felt on exam)
s/p bedside I/D 04/26 by fish tender, per Dr Stewart, wound appears clean, no further surgery planned
Resumed HEALTH PROGRAM SPECIALIST Eliquis
Pain control with Tylenol and oxycodone. Senokot-S added while on oxycodone
Wound care on board
ID on board
# L knee swelling, 2/2 LLE cellulitis
Appreciate ortho input, No acute orthopaedic intervention indicated as physical exam not concerning for septic arthritis
# MARY ANN , resolved
s/p 1 L NSS bolus,
SCr 1.6 on admission -> 0.9 today, baseline at 1.1
Cont to hold HEALTH PROGRAM SPECIALIST Valsartan
Monitor SCr
# Hyponatremia
Sodium level 132 today
# Chronic CHF s/p ICD
Cont to hold HEALTH PROGRAM SPECIALIST Lasix, Valsartan
Resumed HEALTH PROGRAM SPECIALIST lasix 40 mg BID on 04/27
daily weight if able
# hypertension
Cont HEALTH PROGRAM SPECIALIST BB with hold parameter
Cont to hold HEALTH PROGRAM SPECIALIST Valsartan
Resumed HEALTH PROGRAM SPECIALIST lasix 40 mg BID on 04/27
Monitor BP, currently stable
# NIDDM
A1C 6%
cover with ISS
Carb control diet
# Paroxysmal A-fib on Eliquis
Cont HEALTH PROGRAM SPECIALIST BB with hold parameter
Cont HEALTH PROGRAM SPECIALIST Amio
resumed HEALTH PROGRAM SPECIALIST Eliquis
DVT ppx: HEALTH PROGRAM SPECIALIST Eliquis
FC
DW RN
Anticipated Discharge: 24 - 48 hours
Subjective/Interval History
-
Date of Service: April 27, 2025
Objective Data
-
Labs:
Laboratory Results
04/27/25 04/27/25
06:57 06:58
WBC 16.7 H
Hgb 13.7
Hct 40.8
Plt Count 142
Sodium 132 L
Potassium 3.5
Chloride 101
Carbon Dioxide 26
BUN 17
Creatinine 0.9
Glucose 159 H
Calcium 8.1 L
Vital Signs:
Vital Signs
Temp Pulse Resp BP Pulse Ox
36.4 C 86 18 115/74 98
04/27/25 07:04 04/27/25 07:04 04/27/25 07:04 04/27/25 07:04 04/27/25 07:04
I&O
04/26/25 04/27/25 04/28/25
06:59 06:59 06:59
Intake Total 0 / 2739
Output Total 2024
Balance 715 / 715
Review of Systems
-
History Source: Patient
Skin: Reports Other (left leg rash )
Physical Exam
-
General: Well Developed, Well Nourished, No Apparent Distress, Comfortable, Conversant and Obese; Negative Respiratory Distress
HEENT: Normocephalic, Atraumatic, Nose Appears Normal and Ears Appear Normal; Negative Oxygen
Respiratory: Clear to Auscultation and Non Labored Respirations; Negative Accessory Resp Muscle Use
Cardiac: Regular Rhythm and S1/S2
GI: Soft, Nontender, Nondistended and Normal Bowel Sounds
Skin: Lesions (LLE rash and L foot wound, see wound care note)
Neuro: Awake, Alert, Oriented and AO x 3
Psych: Calm and Intact Judgement/Insight
Data Reviewed
-
Diagnostic Radiology: Report Reviewed by me
Ultrasound: Report Reviewed by me and Discussed with Patient
Labs: Labs Reviewed by me
[2025-04-27] MEDS: BACTROBAN 2% OINTMENT 1 APPLIC TOPICAL (09:04)
[2025-04-27] MEDS: ROXICODONE 5 MG PO (10:00)
[2025-04-27] MEDS: KCL 40 MEQ PO (10:00)
[2025-04-27 12:11] LABS: Glucose - Point of Care 159 mg/dl (70-99)
--- NOTE | 2025-04-27 13:34 | W.PN.ID1 ---
Date of Service
Date of Service: April 27, 2025
Today's Communication
Continue antibiotics.
Assessment / Plan
Left lower extremity cellulitis
- Portal of entry likely chronic left lateral foot wound
Leukocytosis
Fevers
Elevated bilirubin
DM type II
Chronic right lower leg section
Cardiomyopathy
HTN
Sleep apnea
A-fib (Eliquis)
Recommendations:
Continue with current empiric antibiotics (vancomycin, cefepime).
Wound culture currently pending, although it is a superficial wound culture, and results need to be interpreted in that context.
Plain film imaging of the foot does not indicate any osteomyelitis in this chronic wound. No need for MRI imaging at present, although will likely need serial imaging of the foot as outpatient to assess for any bony changes.
Continue with left leg elevation to control edema. LE SOILA placed by Podiatry
Monitor white count and temperature curve.
Monitor blood cultures.
����������������������������������������������������������
Chief Complaint
-: Cellulitis
Subjective / Review of Systems
Review of Systems: No Fever and No Chills
Vital Signs / Physical Exam
Vital Signs
Vital Signs
Temp Pulse Resp BP Pulse Ox
98.0 F 84 18 128/71 96
04/27/25 11:00 04/27/25 11:00 04/27/25 11:00 04/27/25 11:00 04/27/25 11:00
Physical Exam
Constitutional: No Acute Distress, Comfortable and Non-toxic
Pulmonary: Non Labored
Gastrointestinal: Soft and Non Distended
Extremities: Edema (3+ left lower extremity edema) and Erythema (Moderate left lower extremity)
Neurological: Awake and Alert
Psychological: Calm
Objective Data
Lab Data
Lab Results
04/27/25 06:57
04/27/25 06:58
Estimated Creat Clear > 125 ml/min 04/27/25 06:58
Lactic Acid Cancelled 04/26/25 07:12
Total Bilirubin 1.9 mg/dl (0.2-1.3) H D 04/26/25 07:29
AST 36 U/L (17-59) 04/26/25 07:29
ALT 21 U/L (0-50) 04/26/25 07:29
Alkaline Phosphatase 118 U/L (38-126) 04/26/25 07:29
Most recent labs reviewed.
Micro Results:
04/25/25 12:46 Blood Culture - Preliminary
Blood/Venous No Growth in 48 hours- Final report to follow
04/25/25 16:35 Wound Culture - Preliminary
Ulcer Proteus species
Gram negative bacilli
Gram Stain - Preliminary
04/25/25 20:56 MRSA Screen - Final
Nose No Methicillin Resistant Staphylococcus aureus isolated.
04/25/25 15:10 Blood Culture - Preliminary
Blood/Venous No Growth in 24 hours- Final report to follow
04/25/25 12:46 Influenza Types A & B (EMILI) - Final
Nasal Swab Negative for Influenza A & B, NAAT
Negative results must be combined with clinical observations
and patient history.
Nucleic Acid Amplification test (NAAT)performed on the
[employer] platform.
Imaging:
04/25/2025 Duplex ultrasound left lower extremity: no evidence of DVT. Multiple lymph nodes present in the left groin, with the largest measuring 3.5 x 2.0 x 2.0. Moderate subcutaneous edema seen within the left calf. Please see full dictation
for additional detail.
04/25/2025 X-ray left foot: plantar and lateral soft tissue air adjacent to the proximal fifth metatarsal bone compatible with history of soft tissue wound. No radiographic findings to suggest osteomyelitis. No evidence of radiopaque foreign body.
--- NOTE | 2025-04-27 13:40 | W.PN.POD ---
Today's Communication
Today's Communication
All wound LLE were evaluated and redressed. New orders placed on chart.
Compression with 6 in jamir LLE to reduce edema and drainage
Rec LLE elevation, K Pad/topical heat for symptom relief
RE: C/o pain and increased swelling LLE - with drainage to new stasis wounds to the LLE, no necrosis or suspicion of compartment syndrome at this time,
Will follow closely over the next 24-48h
Assessment / Plan
-
NIDDM with DPN and LOPS
Chronic FT diabetic foot wound Left- No OM on plain film, consider repeat films Vs MRI if cellulitis does not improve
--> wound improved with decreased size, continue wound care and follow for change
Cellulitis LLE-improved WBC to 16.9 (from >23 on admission)
-->New stasis wounds LLE
FT wounds RLE- healing w/o signs of infection
Subjective
Chief Complaint
LLE cellulitis
Subjective
Pt denies F/C/N/V/M, admits to increased pain LLE and drainage to the LLE
Objective
Temp Pulse Resp BP Pulse Ox
98.0 F 84 18 128/71 96
04/27/25 11:00 04/27/25 11:00 04/27/25 11:00 04/27/25 11:00 04/27/25 11:00
04/27/25 06:57
04/27/25 06:58
Vital Signs and Lab results were reviewed.
Inspection: Cellulitis, Inflammation and Ulcer
Review of Systems
Review of Systems
Review of Systems: No Chills, No Headache, No Nausea, No Diarrhea and No Joint Pain
Physical Exam
Physical Exam
General: No Apparent Distress, Conversant and Obese
Musculoskeletal: No Clubbing, No Cyanosis and Edema, Left Lower Extrem
Skin: Warm, Wound (left lateral foot, heel and lateral left leg and anterior LLE with copious serous drainage. LLE cellulitis persists) and Other (RLE wounds stable)
Neuro: AO x 3 and Protective Sensation Absent
Vascular: Capillary Refill Intact, Pedal Hair Absent and Skin Temperature Warm to Warm
Dorsalis Pedis: Intact
Posterior Tibialis: Diminished
--- NOTE | 2025-04-27 16:08 | PTCARENOTE ---
SPD called and voicemail left requesting K[facility].
[2025-04-27] MEDS: NOVOLOG FLEXPEN-LOW RESISTANCE SC ×2 (16:14→16:37)
[2025-04-27 16:33] LABS: Glucose - Point of Care 147 mg/dl (70-99)
--- NOTE | 2025-04-27 20:00 | PTCARENOTE ---
Patient refusing tele monitor. RN attempted multiple times and educated on reasoning behind tele monitor. Pt still refusing. BANK MANAGER made aware. No new orders at this time.
[2025-04-27 22:00] LABS: Glucose - Point of Care 138 mg/dl (70-99)
[2025-04-28 03:06] VITALS: BP 139/84
[2025-04-28 06:00] VITALS: BMI 36.0
[2025-04-28 06:19] LABS: Hematocrit 42.0 % (39.0-52.0); Hemoglobin 14.0 g/dL (13.0-18.0); Mean Corp Hgb Conc. 33.3 g/dL (33.0-37.0); Mean Corpuscular Volume 86.1 fL (80.0-94.0); Nucleated Red Blood Cells % 0 % (-); Platelet Count 189 10^3/uL (130-400); Red Cell Dist. Width 14.5 % (11.5-14.5)
[2025-04-28] MEDS: VANCOCIN 530 MG IV (06:22)
[2025-04-28 06:47] LABS: Blood Urea Nitrogen 16 mg/dl (9-20); Calcium 8.2 mg/dl (8.4-10.2); Carbon Dioxide 28 mmol/L (22-30); Chloride 99 mmol/L (98-107); Estimated Creatinine Clearance > 125 ml/min; Glucose 116 mg/dl (70-99); Potassium 3.3 mmol/L (3.5-5.1); Sodium 134 mmol/L (135-145); eGFR > 60.00
--- NOTE | 2025-04-28 07:01 | W.PN.HOSP.TC ---
Today's Communication/Plan
-
Today's plan:
Peripheral vascular study to rule out peripheral arterial disease
ID consulted
Assessment / Plan
Assessment / Plan
HPI: 54-year-old male with past medical history of CHF s/p ICD, hypertension, NIDDM, HDL, A-fib on Eliquis; p/w progressive redness, swelling and pain of L foot, now to his thigh and groin area.
He has L foot wound and has been following with wound care 3 times per week over the past few months at [facility].
He also c/o generalized weakness, fever and chills. Denies to chest pain, shortness of breath, abdominal pain etc.
# sepsis POA 2/2 LLE cellulitis:
Vitals: 149/86, RR 16, saturation 99, pain 6/10
On examination: Left side wound dressing present, bilateral rash present until knees, and right side marking present for erythema, swelling previously comparatively not reduced.
Right side 2 bandages present with date written of 04/26.
Labs: WBC 16.7--19,
Sodium 134 low, potassium 3.5--3.3 low, replenished with potassium chloride IV rider blood calcium 8.2 low, magnesium yesterday 2.4 high--today, creatinine 0.8 results added
Vancomycin within therapeutic range 10.1
Vascular peripheral ultrasound on 04/17: No evidence of deep venous thrombosis of the left lower extremity.
On 04/25 wound culture collected: Proteus mirabilis, Pseudomonas aeruginosa positive prelim report,
Both organisms sensitive to aztreonam, ciprofloxacin, pip-tazo, tobramycin, meropenem.
Currently however he is receiving vancomycin, cefepime on day 3
MRSA negative
# Lactic acidosis POA, resolved
s/p 1 L NSS in ED, cautious use of IVF in setting of chronic CHF
blood cultures so far negative
L foot XR negative for osteomyelitis.
LLE venous US negative for DVT
Can follow arterial US for completeness sake (although good palpable dorsalis pedis felt on exam)
s/p bedside I/D 04/26 by social worker aide, per Dr Stewart, wound appears clean, no further surgery planned
Resumed OFFICE SUPPORT CLERK Eliquis
Pain control with Tylenol and oxycodone. Senokot-S added while on oxycodone
Wound care on board
ID on board
# L knee swelling, 2/2 LLE cellulitis
Appreciate ortho input, No acute orthopaedic intervention indicated as physical exam not concerning for septic arthritis
# MARY ANN , resolved
s/p 1 L NSS bolus,
SCr 1.6 on admission -> 0.9 today, baseline at 1.1
Cont to hold OFFICE SUPPORT CLERK Valsartan
Monitor SCr
# Hyponatremia
Sodium level 132 today
# Chronic CHF s/p ICD
Cont to hold OFFICE SUPPORT CLERK Lasix, Valsartan
Resumed OFFICE SUPPORT CLERK lasix 40 mg BID on 04/27
daily weight if able
# Chronic hypertension
Cont OFFICE SUPPORT CLERK BB with hold parameter
Cont to hold OFFICE SUPPORT CLERK Valsartan
Resumed OFFICE SUPPORT CLERK lasix 40 mg BID on 04/27
Monitor BP, currently stable
# NIDDM
A1C 6%
cover with ISS
Carb control diet
# Paroxysmal A-fib on Eliquis
Cont OFFICE SUPPORT CLERK BB with hold parameter
Cont OFFICE SUPPORT CLERK Amio
resumed OFFICE SUPPORT CLERK Eliquis
DVT ppx: OFFICE SUPPORT CLERK Eliquis
Diabetic diet
Code-full
DW RN
Anticipated Discharge: > 48 hours
Subjective/Interval History
-
Date of Service: April 28, 2025
Overnight the patient has the similar swelling, pain, erythema. Denied fever, chills, all systemic symptoms include palpitation, chest pain, dizziness.
Objective Data
-
Labs:
Laboratory Results
04/28/25
05:50
WBC 19.0 H
Hgb 14.0
Hct 42.0
Plt Count 189 D
Sodium 134 L
Potassium 3.3 L
Chloride 99
Carbon Dioxide 28
BUN 16
Creatinine 0.8
Glucose 116 H
Calcium 8.2 L
Vital Signs:
Vital Signs
Temp Pulse Resp BP Pulse Ox
98.6 F 90 20 139/84 100
04/28/25 03:06 04/28/25 03:06 04/28/25 03:06 04/28/25 03:06 04/28/25 03:06
I&O
04/27/25 04/28/25 04/29/25
06:59 06:59 06:59
Intake Total 2740 / 2740 2120 / 2120
Output Total 2024 / 2024 1950 / 1950
Balance 715 / 715 170 / 170
Review of Systems
-
History Source: Patient
All other systems: Reviewed and negative
Physical Exam
-
General: Well Developed and Pain (11/05)
Respiratory: Clear to Auscultation
Cardiac: Regular Rhythm and S1/S2
GI: Soft, Nontender and Nondistended
Skin: Other (Bilateral lower extremity edema, rash, swelling present. Right side leg swelling reduced when comparing with last time which was marked.)
Neuro: AO x 3
Hematologic / Lymphatic: No Lymphadenopathy
Psych: Calm
[2025-04-28 07:05] VITALS: BP 158/94
[2025-04-28 07:34] LABS: Glucose - Point of Care 113 mg/dl (70-99)
[2025-04-28] MEDS: NOVOLOG FLEXPEN-LOW RESISTANCE SC ×3 (07:58→16:58)
--- NOTE | 2025-04-28 08:16 | PHA.VAN.FU ---
Vancomycin Assessment / Plan
- Assessment
Renal Function: SCR Decreasing
WBC's are: Trending Up
In the past 24 hrs, patient has been: Febrile
Concomitant Antimicrobials: cefepime
- Assessment - Therapeutic Drug Monitoring
Extrapolated Cmax (mcg/mL): 24.3
Peak level was drawn: Appropriately (drawn ~2H after end of previous infusion)
Extrapolated Cmin (mcg/mL): 10.8
Trough Drawn: Appropriately
Levels were drawn: At steady state (levels drawn after 3rd maintenance dose; 5th overall dose - given weight > 100kg patient may still have more accumulation)
Calculated AUC (mcg*h/mL): 402
Calculated ke: 0.0775
Calculated half life (H): 8.9
Calculated Vd (L): 96
Calculated Vanc CL (ml/min): 124
- Dosing Plan
Continue: Vanc 1500mg Q12H
Patient may have additional accumulation given weight > 100kg and may not fully be at steady state
However, SCR also decreasing and may be having increased clearance from when regimen was started
Will continue present dosing today and repeat levels in next few days to re-assess if requires dose adjustment
- Monitoring Plan
No level(s) ordered at this time: repeat levels in next few days
- Follow Up
Pharmacy will continue to follow.
Vancomycin Follow UP
- -
Patient Age: 54
Patient Sex: Male
Vancomycin Day #: 4
Indication: Skin And Soft Tissue
Requesting Provider: Dr Mcconnell / [facility]
Pertinent Antimicrobial Allergies:
NKDA
Height / Weight:
Height 6 ft
Actual Weight 120.457 kg
Pertinent Past Medical History: BMI ~36, DM II
- Vital Signs / Lab Results
Temp Pulse Resp BP Pulse Ox
98.6 F 90 20 139/84 100
04/28/25 03:06 04/28/25 03:06 04/28/25 03:06 04/28/25 03:06 04/28/25 03:06
Lab Results - Hematology
04/25/25 04/26/25 04/27/25
12:46 07:30 06:57
WBC 23.7 H 19.0 H 16.7 H
04/28/25
05:50
WBC 19.0 H
Lab Results - Chemistry
04/25/25 04/26/25 04/27/25
12:46 07:29 06:58
BUN 26 H 23 H 17
Creatinine 1.6 H 1.0 0.9
Estimated Creat Clear 112 > 125
Albumin 4.2 3.2 L
04/28/25
05:50
BUN 16
Creatinine 0.8
Estimated Creat Clear > 125
Albumin
04/25/25 04/25/25 04/25/25
12:46 12:46 14:14
Lactic Acid 2.9 H 2.9 H Cancelled
04/25/25 04/25/25 04/25/25
16:35 19:36 23:12
Lactic Acid 2.3 H 1.9 Cancelled
04/26/25 04/26/25
03:12 07:12
Lactic Acid Cancelled Cancelled
Microbiology Results
04/25/25 16:35 Wound Culture - Preliminary
Ulcer Proteus species
Gram negative bacilli
Gram Stain - Preliminary
04/25/25 15:10 Blood Culture - Preliminary
Blood/Venous No Growth in 48 hours- Final report to follow
04/25/25 12:46 Blood Culture - Preliminary
Blood/Venous No Growth in 48 hours- Final report to follow
04/25/25 20:56 MRSA Screen - Final
Nose No Methicillin Resistant Staphylococcus aureus isolated.
Therapeutic Drug Monitoring
Vancomycin Peak 20.9 ug/ml (18-) 04/27/25 20:27
Vancomycin Trough 10.1 ug/ml (5-20) 04/28/25 05:50
Random Vancomycin 8.4 ug/ml 04/26/25 07:29
[2025-04-28] MEDS: PACERONE 50 MG PO (08:44)
[2025-04-28] MEDS: ELIQUIS 5 MG PO ×2 (08:44→19:48)
[2025-04-28] MEDS: TYLENOL 650 MG PO ×2 (08:44→19:48)
[2025-04-28] MEDS: MAXIPIME 1000 MG IV ×3 (08:45→21:00)
[2025-04-28] MEDS: TOPROL XL 25 MG PO ×2 (08:45→19:48)
[2025-04-28] MEDS: STERILE WATER FOR INJECTION 10 ML IV ×3 (08:45→21:00)
[2025-04-28] MEDS: LASIX 40 MG PO ×2 (08:45→15:25)
[2025-04-28] MEDS: BACTROBAN 2% OINTMENT 1 APPLIC TOPICAL (08:47)
[2025-04-28] MEDS: KCL 270 MEQ IV (09:19)
[2025-04-28 09:54] LABS: Magnesium 2.0 mg/dl (1.6-2.3)
[2025-04-28 11:16] VITALS: BP 144/86
--- NOTE | 2025-04-28 11:42 | CM ---
Patient seen bedside.
Chronic LLE wound.
Patient independent prior to admission.
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
Patient has had home IV anbx in the past and is agreeable to home infusion if required.
Patient cannot recall name of infusion company, but if he does need home infusion he will find out which company he was with.
Patient drives.
No assistive devices.
Denies insecurities.
PCP: Dr Arevalo
Pharm[place] [facility] [place]
Plan: home with possible HC/Anbx needs.
[2025-04-28 11:58] LABS: Glucose - Point of Care 153 mg/dl (70-99)
--- NOTE | 2025-04-28 12:51 | PN.CDI ---
CDI
- -
CDI:
Physician Documentation Request
Admit Date: 04/25/25 17:15
Dear Doctor Jayesh,
Clinical Indicators:
Patient admitted with sepsis.
12/14/2023 (Last echocardiogram in [facility]): 'Left ventricular ejection fraction is visually 30 to 35%. Stage
III diastolic dysfunction suggestive of restrictive filling pattern and increased filling pressures.'
Home meds: Lasix, Valsarten
04/27 PN, '# Chronic CHF s/p ICD'
Please provide further specificity regarding the most likely type of CHF you are evaluating, treating or monitoring.
Chronic HFrEF
Other, please specify
Use of terms such as suspected, likely, concern for, or probable (associated with a specific diagnosis that is being evaluated, monitored, or treated as if it exists) are acceptable and can be coded in the inpatient setting, when documented at the
time of discharge.
Thank you,
ROGER Velasco RN
CDI Specialist
available via tiger text
Please use your independent medical judgment in providing your response.
--- NOTE | 2025-04-28 12:58 | PN.CDI ---
CDI
- -
CDI:
Physician Documentation Request
Admit Date: 04/25/25 17:15
Dear ,
Sepsis without organ dysfunction is no longer used within our health system. These cases are now coded as the primary infection, not as sepsis.
[facility] is using an adapted version of the 2016 Third International Consensus Definitions for Sepsis and Septic Shock (Sepsis-3) where sepsis is defined as life threatening organ dysfunction caused by a deregulated host response to infection.
Please reference the official [facility] Sepsis Recognition Tool for further information, which is available on the Intranet under Infection Prevention.
Clinical Indicators Include:
Patient admitted with sepsis.
04/27 PN, 'Sepsis POA 2/2 LLE cellulitis # Lactic acidosis POA, resolved...MARY ANN, resolved'
Cr on admission/trend:
04/25/25 04/26/25 04/27/25
12:46 07:29 06:58
Creatinine 1.6 H 1.0 0.9
eGFR 50.88 > 60.00 > 60.00
:
Based on your medical judgment, please review the documentation pertaining to Sepsis due to LLE cellulitis and further clarify the organ dysfunction associated with the diagnosis::
Sepsis due to LLE cellulitis with organ dysfunction of lactic acidosis and MARY ANN.
Sepsis due to LLE cellulitis with organ dysfunction of lactic acidosis only.
Sepsis due to LLE cellulitis with other organ dysfunction (please specify)
Other, please specify
Clinically Unable to Determine
Use of terms such as suspected, likely, concern for, or probable (associated with a specific diagnosis that is being evaluated, monitored, or treated as if it exists) are acceptable and can be coded in the inpatient setting when documented at the
time of discharge.
Please use your independent medical judgement in providing your response.
Thank you,
ROGER Velasco RN
CDI Specialist
available via tiger text
--- NOTE | 2025-04-28 13:06 | PTCARENOTE ---
Pt hit call nogueira to say his arm was burning. He was receiving an IV infusion of potassium. This Rn stopped the infusion and notified the IV team. made aware.
--- NOTE | 2025-04-28 13:10 | W.PN.UPDATE ---
Update Note
Progress Note Update
HPI: 54-year-old male with past medical history of CHF s/p ICD, hypertension, NIDDM, HDL, A-fib on Eliquis; p/w progressive redness, swelling and pain of L foot, now to his thigh and groin area.
He has L foot wound and has been following with wound care 3 times per week over the past few months at [facility].
He also c/o generalized weakness, fever and chills. Denies to chest pain, shortness of breath, abdominal pain etc.
A/P:
# sepsis POA 2/2 LLE cellulitis
# Lactic acidosis POA, resolved
s/p 1 L NSS in ED, cautious use of IVF in setting of chronic CHF
blood cultures negative
wound culture grew Proteus mirabilis, Pseudomonas aeruginosa, and Streptococcus pyogenes
cont cefepime and vanc
L foot XR negative for osteomyelitis.
Check MRI LLE
LLE venous US negative for DVT
Can follow arterial US for completeness sake (although good palpable dorsalis pedis felt on exam)
s/p bedside I/D 04/26 by director of transportation, per Dr Stewart, wound appears clean, no further surgery planned
Resumed INVESTIGATIVE WRITER Eliquis
Pain control with Tylenol and oxycodone. Senokot-S added while on oxycodone
Wound care on board. ID on board
# L knee swelling, 2/2 LLE cellulitis
Appreciate ortho input, No acute orthopaedic intervention indicated as physical exam not concerning for septic arthritis
# MARY ANN , resolved
s/p 1 L NSS bolus,
SCr 1.6 on admission -> 0.8 today, baseline at 1.1
resume INVESTIGATIVE WRITER Valsartan 04/29
Monitor SCr
# Hyponatremia
Sodium level 134 today
# Chronic CHF s/p ICD
resumed INVESTIGATIVE WRITER Lasix,
resume Valsartan 04/29
daily weight if able
# hypertension
Cont INVESTIGATIVE WRITER BB with hold parameter
Resumed INVESTIGATIVE WRITER lasix 40 mg BID on 04/27
resume Valsartan 04/29
Monitor BP, currently stable
# NIDDM
A1C 6%
cover with ISS
Carb control diet
# Paroxysmal A-fib on Eliquis
Cont INVESTIGATIVE WRITER BB with hold parameter
Cont INVESTIGATIVE WRITER Amio
resumed INVESTIGATIVE WRITER Eliquis
--- NOTE | 2025-04-28 14:32 | W.PN.ID1 ---
Date of Service
Date of Service: April 28, 2025
Today's Communication
Continue cefepime. Discontinue further vancomycin. Await MRI. Continue to follow white count and temperature curve.
Assessment / Plan
Left lower extremity cellulitis
- Portal of entry likely chronic left lateral foot wound
Leukocytosis
Fevers
Elevated bilirubin
DM type II
Chronic right lower leg section
Cardiomyopathy
HTN
Sleep apnea
A-fib (Eliquis)
Recommendations:
Wound culture from the left lateral foot wound has grown Pseudomonas, Proteus mirabilis and strep pyogenes. Current cellulitis likely secondary to recovered strep pyogenes.
Continue with cefepime. Given negative MRSA screen, and negative cultures for MRSA, will discontinue further vancomycin.
Cefepime dose increased.
Case discussed with Podiatry. MRI ordered given ongoing fever, leukocytosis, to rule out abscess.
Continue with left leg elevation to control edema. LE SOILA placed by Podiatry
Monitor white count and temperature curve.
Monitor blood cultures.
����������������������������������������������������������
Chief Complaint
-: Cellulitis
Subjective / Review of Systems
Patient seen and examined. Reports ongoing left leg pain and swelling. Positive fever last evening, although temperature curve appears to be improving.
Vital Signs / Physical Exam
Vital Signs
Vital Signs
Temp Pulse Resp BP Pulse Ox
98.1 F 98 18 144/86 97
04/28/25 11:16 04/28/25 11:16 04/28/25 11:16 04/28/25 11:16 04/28/25 11:16
Physical Exam
Constitutional: No Acute Distress, Comfortable and Non-toxic
Eyes: No Conjunctival Hemorrhage and Sclera Anicteric
Cardiovascular: S1/S2; Negative S3/S4
Pulmonary: Non Labored
Gastrointestinal: Soft, Non Tender, Non Distended and Normal Bowel Sounds
Extremities: Edema (Left lower extremity), Erythema (Left lower extremity) and Venous Insufficiency (Bilateral lower extremities)
Musculoskeletal: Negative Joint Swelling
Neurological: Awake and Alert
Objective Data
Lab Data
Lab Results
04/28/25 05:50
04/28/25 05:50
Estimated Creat Clear > 125 ml/min 04/28/25 05:50
Lactic Acid Cancelled 04/26/25 07:12
Total Bilirubin 1.9 mg/dl (0.2-1.3) H D 04/26/25 07:29
AST 36 U/L (17-59) 04/26/25 07:29
ALT 21 U/L (0-50) 04/26/25 07:29
Alkaline Phosphatase 118 U/L (38-126) 04/26/25 07:29
Most recent labs reviewed.
Micro Results:
04/25/25 12:46 Blood Culture - Preliminary
Blood/Venous No Growth in 72 hours- Final report to follow
04/25/25 16:35 Wound Culture - Final
Ulcer Proteus mirabilis
Pseudomonas aeruginosa
Streptococcus pyogenes
Gram Stain - Final
04/25/25 15:10 Blood Culture - Preliminary
Blood/Venous No Growth in 48 hours- Final report to follow
04/25/25 20:56 MRSA Screen - Final
Nose No Methicillin Resistant Staphylococcus aureus isolated.
04/25/25 12:46 Influenza Types A & B (EMILI) - Final
Nasal Swab Negative for Influenza A & B, NAAT
Negative results must be combined with clinical observations
and patient history.
Nucleic Acid Amplification test (NAAT)performed on the
[employer] platform.
Imaging:
04/25/2025 Duplex ultrasound left lower extremity: no evidence of DVT. Multiple lymph nodes present in the left groin, with the largest measuring 3.5 x 2.0 x 2.0. Moderate subcutaneous edema seen within the left calf. Please see full dictation
for additional detail.
04/25/2025 X-ray left foot: plantar and lateral soft tissue air adjacent to the proximal fifth metatarsal bone compatible with history of soft tissue wound. No radiographic findings to suggest osteomyelitis. No evidence of radiopaque foreign body.
[2025-04-28] MEDS: COZAAR 50 MG PO (15:25)
[2025-04-28 15:39] VITALS: BP 143/81
[2025-04-28 16:46] LABS: Glucose - Point of Care 102 mg/dl (70-99)
--- NOTE | 2025-04-28 17:20 | W.PN.POD ---
Today's Communication
Today's Communication
Arterial study- results pending
Wounds cleansed w/vashe and pustules were sterilly drained w/o deroofing, vashe compress x 4 min LLE was redressed w/ mild compression dressing
Rec MRI left foot, ankle and knee once pacer is addressed (turned off for study) Await Cardiology input to eval for abscess and possible osteo based on prev history of abscess in Jan 2025
Following closely w/you
Assessment / Plan
-
NIDDM with DPN and LOPS
Chronic FT diabetic foot wound Left- No OM on plain film, consider repeat films Vs MRI if cellulitis does not improve
--> wound improved with decreased size, continue wound care and follow for change
Cellulitis LLE-advanced w/extension above knee -CX + Proteus, Strep and pseudomonas
-->pustules present to LLE anterior hendrix just below knee
FT wounds RLE- healing w/o signs of infection
Subjective
Chief Complaint
cellulitis left foot
Subjective
Pt denies F/C/N/V/M, admits to increased pain LLE and knee
Objective
Temp Pulse Resp BP Pulse Ox
98.2 F 92 20 143/81 96
04/28/25 15:39 04/28/25 15:39 04/28/25 15:39 04/28/25 15:39 04/28/25 15:39
04/28/25 05:50
04/28/25 05:50
Vital Signs and Lab results were reviewed.
Inspection: Cellulitis (advanced to the left thigh), Inflammation and Ulcer
Review of Systems
Review of Systems
Review of Systems: No Headache, No Nausea, No Diarrhea and No Joint Pain (pain to palpation of the left knee, no pain w/ROM left knee)
Physical Exam
Physical Exam
General: No Apparent Distress, Conversant and Obese
Musculoskeletal: No Cyanosis and Edema, Left Lower Extrem
Skin: Neurotrophic Ulcer (left lateral foot and left lateral heel- healing w/o odor or drainage)
Neuro: AO x 3 and Protective Sensation Absent
Vascular: Skin Temperature Warm to Warm
Dorsalis Pedis: Intact
Posterior Tibialis: Diminished
[2025-04-28 19:30] VITALS: BP 142/79
[2025-04-28] MEDS: NON-FORMULARY ITEM 0.25 MG SC (19:47)
[2025-04-28 22:22] LABS: Glucose - Point of Care 122 mg/dl (70-99)
[2025-04-28 23:00] VITALS: BP 124/72
[2025-04-29] MEDS: MAXIPIME 1000 MG IV ×2 (03:40→09:00)
[2025-04-29] MEDS: STERILE WATER FOR INJECTION 10 ML IV ×3 (03:41→16:43)
[2025-04-29 06:00] VITALS: BMI 35.6
[2025-04-29 07:43] LABS: Hematocrit 43.5 % (39.0-52.0); Hemoglobin 14.5 g/dL (13.0-18.0); Mean Corp Hgb Conc. 33.3 g/dL (33.0-37.0); Mean Corpuscular Volume 85.3 fL (80.0-94.0); Nucleated Red Blood Cells % 0 % (-); Platelet Count 247 10^3/uL (130-400); Red Cell Dist. Width 14.5 % (11.5-14.5)
--- NOTE | 2025-04-29 07:47 | W.PN.HOSP.TC ---
Addendum entered and electronically signed by Yanely Merrill MD 04/29/25 19:25:
I saw and evaluated the patient independently. I reviewed and discussed the resident�s note and agree with findings and plan as documented by Dr. Bolaños.
GENERAL: well developed, well nourished, male in no apparent distress
HEENT: NC/AT
HEART: regular rate and rhythm, +S1, +S2
LUNGS : clear to auscultation bilaterally
ABDOM: soft, nontender, nondistended, + bowel sounds
EXT: no cyanosis, clubbing--left leg red, hot, swollen with palpable left groin lymph node and jay wrap in place--redness extends past outlined area
NEUROLOGIC: grossly intact
sepsis POA due to LLE cellulitis-- minimal improvement--apprec ID/podiatry--await MRI LLE (has pacemaker)--US neg for DVT--wound culture with polymicrobials (Proteus, Pseudomonas, Strep)--cont cefepime --cont wound care/jay wraps--lactic acidosis
resolved--blood cultures negative--cont eliquis--pain control
L knee swelling-- due to LLE cellulitis--Appreciate ortho input, No acute orthopaedic intervention indicated as physical exam not concerning for septic arthritis
MARY ANN--resolved --s/p IVF--creat at baseline--hold valsartan
Hyponatremia--? SIADH due to pain--monitor
Chronic CHF s/p ICD--Cont to hold ESTATE ADMINISTRATOR Lasix, Valsartan--Resumed ESTATE ADMINISTRATOR lasix 40 mg BID on 04/27--daily weight if able --await cards input re: MRI compatible pacer
Chronic hypertension--cont meds as able
Type 2 DM--SSI--HGB A1C 6
Paroxysmal A-fib on Eliquis--cont--rate controlled--cont amio
DVT proph-- Eliquis
Code status---full code
Original Note:
Today's Communication/Plan
-
follow up cbc, cmp
wound dressing regulary
MRI scan of the left lower extremity pending.
Assessment / Plan
Assessment / Plan
HPI: 54-year-old male with past medical history of CHF s/p ICD, hypertension, NIDDM, HDL, A-fib on Eliquis; p/w progressive redness, swelling and pain of L foot, now to his thigh and groin area.
He has L foot wound and has been following with wound care 3 times per week over the past few months at [place].
He also c/o generalized weakness, fever and chills. Denies to chest pain, shortness of breath, abdominal pain etc.
# sepsis POA 2/2 LLE cellulitis:
Vitals: 149/86, RR 16, saturation 99, pain 6/10
On examination: Left side wound dressing present, bilateral rash present until knees, and right side marking present for erythema, swelling previously comparatively not reduced.
Right side 2 bandages present with date written of 04/26.
Labs: WBC 16.7--19,
Sodium 134 low, potassium 3.5--3.3 low, replenished with potassium chloride IV rider blood calcium 8.2 low, magnesium yesterday 2.4 high--today, creatinine 0.8 results added
Vancomycin within therapeutic range 10.1
Vascular peripheral ultrasound on 04/17: No evidence of deep venous thrombosis of the left lower extremity.
On 04/25 wound culture collected: Proteus mirabilis, Pseudomonas aeruginosa positive prelim report,
Both organisms sensitive to aztreonam, ciprofloxacin, pip-tazo, tobramycin, meropenem.
Currently however he is receiving vancomycin, cefepime on day 3
MRSA negative
Vitals: BP 124/72-141/86, OR 86--94, Tmax 99.1, RR 18, O2 sat 97
On examination: Bilateral lower extremity cellulitis present however left side cellulitis increased the border was before below the knee rash currently spreading towards the thigh.
WBC: 16.7--19--20.2 high
Blood glucose 109, calcium 8.2 low
On 04/28 vancomycin 10.1 within the therapeutic range
On 04/28 peripheral study:
RIGHT LOWER EXTREMITY: Arterial duplex examination reveals multiphasic waveforms throughout with no focal velocity elevations to suggest significant stenosis. Incidental finding of a right groin lymph node measuring 1.6 cm x 1.8 cm
LEFT LOWER EXTREMITY: Arterial duplex examination reveals multiphasic waveforms in the common femoral artery, profunda femoral artery and proximal superficial femoral artery. There is a transition to monophasic waveforms throughout the remainder of
the superficial femoral artery and in the popliteal artery. There are no focal velocity elevations to suggest significant stenosis from the common femoral artery through the popliteal artery. Incidental finding of multiple lymph nodes in the left
groin with the largest measuring 2 cm x 1.8 cm.
Patient is sensitive to aztreonam, ciprofloxacin, piperacillin/tazobactam, tobramycin. Positive for Proteus mirabilis, Pseudomonas aeruginosa, Streptococcus pyogenes.
#Wounds cleansed w/vashe and pustules were sterilly drained w/o deroofing, vashe compress x 4 min LLE was redressed w/ mild compression dressing
Rec MRI left foot, ankle and knee once pacer is addressed (turned off for study) Await Cardiology input to eval for abscess and possible osteo based on prev history of abscess in Jan 2025
# ID recommended to continue with cefepime day 5 continue for 10 days by given the severe purulent cellulitis, discontinue further vancomycin.
# Lactic acidosis POA, resolved
s/p 1 L NSS in ED, cautious use of IVF in setting of chronic CHF
blood cultures so far negative
L foot XR negative for osteomyelitis.
LLE venous US negative for DVT
Can follow arterial US for completeness sake (although good palpable dorsalis pedis felt on exam)
s/p bedside I/D 04/26 by reinspector, per Dr Stewart, wound appears clean, no further surgery planned
Resumed ESTATE ADMINISTRATOR Eliquis
Pain control with Tylenol and oxycodone. Senokot-S added while on oxycodone
Wound care on board
ID on board
# L knee swelling, 2/2 LLE cellulitis
Appreciate ortho input, No acute orthopaedic intervention indicated as physical exam not concerning for septic arthritis
# MARY ANN , resolved
s/p 1 L NSS bolus,
SCr 1.6 on admission -> 0.9 today, baseline at 1.1
Cont to hold ESTATE ADMINISTRATOR Valsartan
Monitor SCr
# Hyponatremia
Sodium level 132 today
# Chronic CHF s/p ICD
Cont to hold ESTATE ADMINISTRATOR Lasix, Valsartan
Resumed ESTATE ADMINISTRATOR lasix 40 mg BID on 04/27
daily weight if able
# Chronic hypertension
Cont ESTATE ADMINISTRATOR BB with hold parameter
Cont to hold ESTATE ADMINISTRATOR Valsartan
Resumed ESTATE ADMINISTRATOR lasix 40 mg BID on 04/27
Monitor BP, currently stable
# NIDDM
A1C 6%
cover with ISS
Carb control diet
# Paroxysmal A-fib on Eliquis
Cont ESTATE ADMINISTRATOR BB with hold parameter
Cont ESTATE ADMINISTRATOR Amio
resumed ESTATE ADMINISTRATOR Eliquis
DVT ppx: ESTATE ADMINISTRATOR Eliquis
Diabetic diet
Code-full
DW RN
Anticipated Discharge: 24 - 48 hours
Subjective/Interval History
-
Date of Service: April 29, 2025
Overnight the patient took Ozempic his home medications once a week, and he feels that his swelling is not reduced. He denies fever, chills, dizziness, palpitation.
Objective Data
-
Labs:
Laboratory Results
04/29/25
06:43
WBC 20.2 H
Hgb 14.5
Hct 43.5
Plt Count 247 D
Sodium Pending
Potassium Pending
Chloride Pending
Carbon Dioxide Pending
BUN Pending
Creatinine Pending
Glucose Pending
Calcium Pending
Total Bilirubin Pending
AST Pending
ALT Pending
Alkaline Phosphatase Pending
Vital Signs:
Vital Signs
Temp Pulse Resp BP Pulse Ox
99.1 F 86 18 124/72 95
04/28/25 23:00 04/28/25 23:00 04/28/25 23:00 04/28/25 23:00 04/28/25 23:00
I&O
04/28/25 04/29/25 04/30/25
06:59 06:59 06:59
Intake Total 2120 / 2120 940 / 940 1440 / 1440
Output Total 1950 / 1950 1900 / 1900 1800 / 1800
Balance 170 / 170 -960 / -960 -360 / -360
Review of Systems
-
History Source: Patient
All other systems: Reviewed and negative
Physical Exam
-
General: Well Developed and Well Nourished
HEENT: Normocephalic
Respiratory: Clear to Auscultation
Cardiac: Regular Rhythm and S1/S2
GI: Soft, Nontender and Nondistended
Genito-urinary: No Costovertebral Tender
Musculoskeletal: No Clubbing and No Cyanosis
Skin: Warm and Other (Left lower extremity cellulitis rash, warmth, tenderness expanding above the knee when comparing with yesterday. Jay wrap present. Right lower extremity has scaly skin, lichenification's, Band-Aid present)
Neuro: AO x 3
Hematologic / Lymphatic: Lymphadenopathy
[2025-04-29 08:15] LABS: ALT (SGPT) 40 U/L (0-50); AST (SGOT) 52 U/L (17-59); Albumin 3.2 g/dl (3.5-5.0); Alkaline Phosphatase 251 U/L (38-126); Blood Urea Nitrogen 14 mg/dl (9-20); Calcium 8.2 mg/dl (8.4-10.2); Carbon Dioxide 27 mmol/L (22-30); Chloride 103 mmol/L (98-107); Estimated Creatinine Clearance > 125 ml/min; Glucose 109 mg/dl (70-99); Potassium 3.5 mmol/L (3.5-5.1); Sodium 136 mmol/L (135-145); Total Protein 6.9 g/dl (6.3-8.2); eGFR > 60.00
[2025-04-29 08:17] LABS: Glucose - Point of Care 175 mg/dl (70-99)
[2025-04-29 08:19] VITALS: BP 141/86
[2025-04-29] MEDS: NOVOLOG FLEXPEN-LOW RESISTANCE SC ×3 (08:40→17:10)
[2025-04-29] MEDS: LASIX 40 MG PO ×2 (08:55→16:43)
[2025-04-29] MEDS: TYLENOL 650 MG PO ×2 (08:55→22:34)
[2025-04-29] MEDS: ELIQUIS 5 MG PO ×2 (08:56→19:38)
[2025-04-29] MEDS: PACERONE 50 MG PO (08:56)
[2025-04-29] MEDS: COZAAR 50 MG PO (08:56)
[2025-04-29] MEDS: TOPROL XL 25 MG PO ×2 (08:56→19:38)
[2025-04-29] MEDS: BACTROBAN 2% OINTMENT 1 APPLIC TOPICAL (08:56)
[2025-04-29 11:55] LABS: Glucose - Point of Care 165 mg/dl (70-99)
--- NOTE | 2025-04-29 13:12 | W.PN.ID1 ---
Date of Service
Date of Service: April 29, 2025
Today's Communication
Continue abx.
Assessment / Plan
Left lower extremity cellulitis
- Portal of entry likely chronic left lateral foot wound
- clinically consistent with GP A strep.
Leukocytosis
Fevers
Elevated bilirubin
DM type II
Chronic right lower leg section
Cardiomyopathy
HTN
Sleep apnea
A-fib (Eliquis)
Recommendations:
Wound culture from the left lateral foot wound has grown Pseudomonas, Proteus mirabilis and strep pyogenes. Current cellulitis likely secondary to recovered strep pyogenes.
Continue with cefepime.
Cefepime dose increased.
Case discussed with Podiatry. MRI ordered given ongoing fever, leukocytosis, to rule out abscess.
Continue with left leg elevation to control edema. LE SOILA placed by Podiatry
Monitor white count and temperature curve. Temp curve overall appears improved.
Monitor blood cultures.
����������������������������������������������������������
Chief Complaint
-: Cellulitis (LLE)
Subjective / Review of Systems
Pt seen / examined. Reports that leg is feeling better. Fevers improving.
Vital Signs / Physical Exam
Vital Signs
Vital Signs
Temp Pulse Resp BP Pulse Ox
98.9 F 94 18 141/86 97
04/29/25 08:19 04/29/25 08:55 04/29/25 08:19 04/29/25 08:55 04/29/25 09:30
Physical Exam
Constitutional: No Acute Distress and Comfortable
Eyes: No Conjunctival Hemorrhage and Sclera Anicteric
Cardiovascular: S1/S2; Negative S3/S4
Pulmonary: Non Labored
Gastrointestinal: Soft, Non Tender, Non Distended and Normal Bowel Sounds
Extremities: Edema (Left lower extremity. Improved from yesterday's exam.), Erythema (Left lower extremity. Improved from yesterday's exam.) and Venous Insufficiency (Bilateral lower extremities)
Musculoskeletal: Negative Joint Swelling
Neurological: Awake and Alert
Objective Data
Lab Data
Lab Results
04/29/25 06:43
04/29/25 06:43
Estimated Creat Clear > 125 ml/min 04/29/25 06:43
Lactic Acid Cancelled 04/26/25 07:12
Total Bilirubin 1.5 mg/dl (0.2-1.3) H 04/29/25 06:43
AST 52 U/L (17-59) 04/29/25 06:43
ALT 40 U/L (0-50) 04/29/25 06:43
Alkaline Phosphatase 251 U/L (38-126) H 04/29/25 06:43
Most recent labs reviewed.
Micro Results:
04/25/25 12:46 Blood Culture - Preliminary
Blood/Venous No Growth in 4 days- Final report to follow
04/25/25 15:10 Blood Culture - Preliminary
Blood/Venous No Growth in 72 hours- Final report to follow
04/25/25 16:35 Wound Culture - Final
Ulcer Proteus mirabilis
Pseudomonas aeruginosa
Streptococcus pyogenes
Gram Stain - Final
04/25/25 20:56 MRSA Screen - Final
Nose No Methicillin Resistant Staphylococcus aureus isolated.
04/25/25 12:46 Influenza Types A & B (EMILI) - Final
Nasal Swab Negative for Influenza A & B, NAAT
Negative results must be combined with clinical observations
and patient history.
Nucleic Acid Amplification test (NAAT)performed on the
[employer] platform.
Imaging:
Left foot MRI : ordered 04/28/25
04/25/2025 Duplex ultrasound left lower extremity: no evidence of DVT. Multiple lymph nodes present in the left groin, with the largest measuring 3.5 x 2.0 x 2.0. Moderate subcutaneous edema seen within the left calf. Please see full dictation
for additional detail.
04/25/2025 X-ray left foot: plantar and lateral soft tissue air adjacent to the proximal fifth metatarsal bone compatible with history of soft tissue wound. No radiographic findings to suggest osteomyelitis. No evidence of radiopaque foreign body.
Care Review
Plan reviewed with: Physician (Podiatry) and Other (Clinical Pharmacy)
--- NOTE | 2025-04-29 14:02 | W.PN.POD ---
Today's Communication
Today's Communication
LLE dressing were removed and wounds and cellulitis re assessed, Cleansed w/Vashe and redressed with mupirocin ointment and mild compression dressing
Will order CXR to asess new pacer leads per request, MRI pending
Assessment / Plan
-
NIDDM with DPN and LOPS
Chronic FT diabetic foot wound Left- No OM on plain film, consider repeat films in 2 weeks, MRI if able secondary to pacer
--> wound improved with decreased size, continue wound care and follow for change
Cellulitis LLE-some improvement noted - Dr Londono following
-->CX + Proteus, Strep and pseudomonas
FT wounds RLE- healing w/o signs of infection
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
Subjective
Chief Complaint
Cellulitis left leg/chronic wound left foot
Subjective
Pt states he is feeling better, less pain to the LLE today. Denies F/C/N/V
Objective
Temp Pulse Resp BP Pulse Ox
98.9 F 94 18 141/86 97
04/29/25 08:19 04/29/25 08:55 04/29/25 08:19 04/29/25 08:55 04/29/25 09:30
04/29/25 06:43
04/29/25 06:43
Vital Signs and Lab results were reviewed.
Inspection: Cellulitis (improved) and Ulcer (healing to plantar lateral foot)
Review of Systems
Review of Systems
Review of Systems: No Fever, No Chills, No Headache, No Nausea, No Diarrhea and No Joint Pain
Physical Exam
Physical Exam
General: No Apparent Distress and Conversant
Musculoskeletal: Edema, Left Lower Extrem
Skin: IV Access/Catheter Site, Neurotrophic Ulcer (left lateral foot and heel w/o odor or drainage, decreased size ) and Other (decreased erythema and warmth to the LLE, scaling noted now to LLE w/ reduced cellulitis and edema)
Neuro: AO x 3 and Protective Sensation Absent
Vascular: Pedal Hair Absent and Skin Temperature Warm to Warm
Dorsalis Pedis: Intact
Posterior Tibialis: Diminished
[2025-04-29 15:30] VITALS: BP 143/86
[2025-04-29] MEDS: MAXIPIME 2000 MG IV (16:43)
[2025-04-29 17:06] LABS: Glucose - Point of Care 132 mg/dl (70-99)
[2025-04-29] MEDS: ROBITUSSIN DM 10 ML PO (22:34)
[2025-04-29 23:43] VITALS: BP 144/84
[2025-04-30] MEDS: MAXIPIME 2000 MG IV ×4 (00:01→23:05)
[2025-04-30] MEDS: STERILE WATER FOR INJECTION 10 ML IV ×4 (00:01→23:05)
[2025-04-30 00:15] LABS: Glucose - Point of Care 116 mg/dl (70-99)
[2025-04-30] MEDS: NEURONTIN 300 MG PO (05:08)
[2025-04-30 06:19] VITALS: BMI 35.3
[2025-04-30 07:00] LABS: Hematocrit 41.6 % (39.0-52.0); Hemoglobin 14.2 g/dL (13.0-18.0); Mean Corp Hgb Conc. 34.1 g/dL (33.0-37.0); Mean Corpuscular Volume 85.8 fL (80.0-94.0); Nucleated Red Blood Cells % 0 % (-); Platelet Count 303 10^3/uL (130-400); Red Cell Dist. Width 14.4 % (11.5-14.5)
[2025-04-30 07:13] VITALS: BP 121/82
--- NOTE | 2025-04-30 07:35 | W.PN.HOSP.TC ---
Addendum entered and electronically signed by Yanely Merrill MD 04/30/25 15:13:
I saw and evaluated the patient independently. I reviewed and discussed the resident�s note and agree with findings and plan as documented by Dr. Bolaños.
GENERAL: well developed, well nourished, male in no apparent distress
HEENT: NC/AT
HEART: regular rate and rhythm, +S1, +S2
LUNGS : clear to auscultation bilaterally
ABDOM: soft, nontender, nondistended, + bowel sounds
EXT: no cyanosis, clubbing--left leg less red, hot, swollen with palpable left groin lymph node and jamir wrap in place
NEUROLOGIC: grossly intact
sepsis POA due to LLE cellulitis/osteomyelitis-- improvement--apprec ID/podiatry--MRI LLE shows early acute osteomyelitis--US neg for DVT--wound culture with polymicrobials (Proteus, Pseudomonas, Strep)--cont cefepime, with MRI results will need IV
ABX--cont wound care/jamir wraps--lactic acidosis resolved--blood cultures negative--cont eliquis--pain control
L knee swelling-- due to LLE cellulitis--Appreciate ortho input, No acute orthopaedic intervention indicated as physical exam not concerning for septic arthritis
MARY ANN--resolved --s/p IVF--creat at baseline--consider restarting valsartan with parameters
Hyponatremia--? SIADH due to pain--monitor
Chronic CHF s/p ICD without exacerbation--Resumed lasix 40 mg BID on 04/27--daily weight if able
Chronic hypertension--cont meds as able
Type 2 DM--SSI--HGB A1C 6
Paroxysmal A-fib on Eliquis--cont--rate controlled--cont amio
DVT proph-- Eliquis
Code status---full code
Original Note:
Today's Communication/Plan
-
follow up MRI--early acute osteomyelitis changes.
cbc, cmp
currently on cefipime 2 g iv.
Assessment / Plan
Assessment / Plan
HPI: 54-year-old male with past medical history of CHF s/p ICD, hypertension, NIDDM, HDL, A-fib on Eliquis; p/w progressive redness, swelling and pain of L foot, now to his thigh and groin area.
He has L foot wound and has been following with wound care 3 times per week over the past few months at [place].
He also c/o generalized weakness, fever and chills. Denies to chest pain, shortness of breath, abdominal pain etc.
# sepsis POA 2/2 LLE cellulitis:
Vitals: 149/86, RR 16, saturation 99, pain 6/10
On examination: Left side wound dressing present, bilateral rash present until knees, and right side marking present for erythema, swelling previously comparatively not reduced.
Right side 2 bandages present with date written of 04/26.
WBC 19--20.2--20.2, hemoglobin 14.5--14.2.
Chemistry: Sodium 137, potassium 3.3 potassium chloride oral solution ordered, blood glucose 118 high.
Vancomycin within therapeutic range 10.1
Vascular peripheral ultrasound on 04/17: No evidence of deep venous thrombosis of the left lower extremity.
On 04/25 wound culture collected: Proteus mirabilis, Pseudomonas aeruginosa positive prelim report,
Both organisms sensitive to aztreonam, ciprofloxacin, pip-tazo, tobramycin, meropenem.
Currently however he is receiving vancomycin, cefepime on day 3
MRSA negative
Wound Notes: Dry/intact
On 04/30 MRI lower extremity findings:
Bone marrow edema and enhancement in the base of the fifth metatarsal without T1 hypointense marrow replacement, favored to represent the early changes of acute osteomyelitis given the proximity to the plantar lateral soft tissue wound. Reactive
bone marrow edema is a less likely consideration.
Transverse band of bone marrow edema in the cuboid. Uncertain etiology but could be reactive or posttraumatic. Osteomyelitis is considered less likely as this is not in immediate proximity to the soft tissue ulceration.
12/02 chest x-ray findings:
Placement of a right-sided cardiac conduction device with leads in the right atrium, right ventricle, and coronary sinus. No focal consolidation, pleural effusion, or pneumothorax. The cardiac silhouette is enlarged. Chronic degenerative changes of
the spine.
On 04/28 peripheral study:
RIGHT LOWER EXTREMITY: Arterial duplex examination reveals multiphasic waveforms throughout with no focal velocity elevations to suggest significant stenosis. Incidental finding of a right groin lymph node measuring 1.6 cm x 1.8 cm
LEFT LOWER EXTREMITY: Arterial duplex examination reveals multiphasic waveforms in the common femoral artery, profunda femoral artery and proximal superficial femoral artery. There is a transition to monophasic waveforms throughout the remainder of
the superficial femoral artery and in the popliteal artery. There are no focal velocity elevations to suggest significant stenosis from the common femoral artery through the popliteal artery. Incidental finding of multiple lymph nodes in the left
groin with the largest measuring 2 cm x 1.8 cm.
Patient is sensitive to aztreonam, ciprofloxacin, piperacillin/tazobactam, tobramycin. Positive for Proteus mirabilis, Pseudomonas aeruginosa, Streptococcus pyogenes.
#Wounds cleansed w/vashe and pustules were sterilly drained w/o deroofing, vashe compress x 4 min LLE was redressed w/ mild compression dressing
Rec MRI left foot, ankle and knee once pacer is addressed (turned off for study) Await Cardiology input to eval for abscess and possible osteo based on prev history of abscess in Jan 2025
# ID recommended to continue with cefepime day 5 continue for 10 days by given the severe purulent cellulitis, discontinue further vancomycin.
# Lactic acidosis POA, resolved
s/p 1 L NSS in ED, cautious use of IVF in setting of chronic CHF
blood cultures so far negative
L foot XR negative for osteomyelitis.
LLE venous US negative for DVT
Can follow arterial US for completeness sake (although good palpable dorsalis pedis felt on exam)
s/p bedside I/D 04/26 by welt pocket machine operator, per Dr Propato, wound appears clean, no further surgery planned
Resumed ELECTRICAL MACHINIST Eliquis
Pain control with Tylenol and oxycodone. Senokot-S added while on oxycodone
Wound care on board
ID on board
# L knee swelling, 2/2 LLE cellulitis
Appreciate ortho input, No acute orthopaedic intervention indicated as physical exam not concerning for septic arthritis
# MARY ANN , resolved
s/p 1 L NSS bolus,
SCr 1.6 on admission -> 0.9 today, baseline at 1.1
Cont to hold ELECTRICAL MACHINIST Valsartan
Monitor SCr
# Hyponatremia
Sodium level 132 today
# Chronic CHF s/p ICD
Cont to hold ELECTRICAL MACHINIST Lasix, Valsartan
Resumed ELECTRICAL MACHINIST lasix 40 mg BID on 04/27
daily weight if able
# Chronic hypertension
Cont ELECTRICAL MACHINIST BB with hold parameter
Cont to hold ELECTRICAL MACHINIST Valsartan
Resumed ELECTRICAL MACHINIST lasix 40 mg BID on 04/27
Monitor BP, currently stable
# NIDDM
A1C 6%
cover with ISS
Carb control diet
# Paroxysmal A-fib on Eliquis
Cont ELECTRICAL MACHINIST BB with hold parameter
Cont ELECTRICAL MACHINIST Amio
resumed ELECTRICAL MACHINIST Eliquis
DVT ppx: ELECTRICAL MACHINIST Eliquis
Diabetic diet
Code-full
DW RN
Anticipated Discharge: > 48 hours
Subjective/Interval History
-
Date of Service: April 30, 2025
Overnight patient felt much better from his left lower limb cellulitis pain, swelling, redness after increasing the dosage of cefepime from 1000 mg--2g iv by given his culture reports of Proteus, Pseudomonas, strep pyogenes positive. Patient is
aware of his blood culture reports he denied fever, chills, other systemic symptoms includes chest pain, palpitation, dizziness.
Objective Data
-
Labs:
Laboratory Results
04/30/25
06:14
WBC 20.2 H
Hgb 14.2
Hct 41.6
Plt Count 303 D
Sodium Pending
Potassium Pending
Chloride Pending
Carbon Dioxide Pending
BUN Pending
Creatinine Pending
Glucose Pending
Calcium Pending
Total Bilirubin Pending
AST Pending
ALT Pending
Alkaline Phosphatase Pending
Vital Signs:
Vital Signs
Temp Pulse Resp BP Pulse Ox
98.4 F 89 18 144/84 95
04/29/25 23:43 04/29/25 23:43 04/29/25 23:43 04/29/25 23:43 04/29/25 23:43
I&O
04/29/25 04/30/25 05/01/25
06:59 06:59 06:59
Intake Total 940 / 940 3780 / 3780
Output Total 1900 / 1900 5950 / 5950
Balance -960 / -960 -2170 / -2170
Review of Systems
-
History Source: Patient
All other systems: Reviewed and negative
Physical Exam
-
General: Well Developed and Pain (07/08)
HEENT: PERRLA
Respiratory: Clear to Auscultation
Cardiac: Regular Rhythm and S1/S2
GI: Soft, Nontender and Nondistended
Genito-urinary: No Costovertebral Tender
Musculoskeletal: No Clubbing, No Cyanosis and No Edema
Skin: Warm and Other (Left side lower limb: Left side rash, warmth, tenderness. Swelling reduced from yesterday.)
Neuro: AO x 3
Hematologic / Lymphatic: No Lymphadenopathy
[2025-04-30 07:36] LABS: ALT (SGPT) 31 U/L (0-50); AST (SGOT) 32 U/L (17-59); Albumin 3.1 g/dl (3.5-5.0); Alkaline Phosphatase 206 U/L (38-126); Blood Urea Nitrogen 17 mg/dl (9-20); Calcium 8.1 mg/dl (8.4-10.2); Carbon Dioxide 29 mmol/L (22-30); Chloride 102 mmol/L (98-107); Estimated Creatinine Clearance > 125 ml/min; Glucose 118 mg/dl (70-99); Potassium 3.3 mmol/L (3.5-5.1); Sodium 137 mmol/L (135-145); Total Protein 6.8 g/dl (6.3-8.2); eGFR > 60.00
[2025-04-30 08:36] LABS: Glucose - Point of Care 107 mg/dl (70-99)
[2025-04-30] MEDS: NOVOLOG FLEXPEN-LOW RESISTANCE SC ×3 (08:42→16:38)
[2025-04-30] MEDS: PACERONE 50 MG PO (08:48)
[2025-04-30] MEDS: TOPROL XL 25 MG PO ×2 (08:49→19:30)
[2025-04-30] MEDS: COZAAR 50 MG PO (08:49)
[2025-04-30] MEDS: ELIQUIS 5 MG PO ×2 (08:49→19:31)
[2025-04-30] MEDS: KCL ELIXIR 40 MEQ PO (08:49)
[2025-04-30] MEDS: TYLENOL 650 MG PO (08:49)
[2025-04-30] MEDS: LASIX 40 MG PO ×2 (08:49→16:17)
[2025-04-30] MEDS: BACTROBAN 2% OINTMENT 1 APPLIC TOPICAL (08:50)
[2025-04-30 09:23] LABS: Magnesium 1.9 mg/dl (1.6-2.3)
[2025-04-30 12:55] LABS: Glucose - Point of Care 114 mg/dl (70-99)
--- NOTE | 2025-04-30 15:05 | CM ---
Patient seen at bedside on with physicians. Patient pending MRI results and ID assessments for any antibiotic needs. CM will continue to follow for discharge planning needs.
Plan; home with VN watch for possible antibiotic needs.
[2025-04-30 15:58] VITALS: BP 129/77
--- NOTE | 2025-04-30 15:59 | W.PN.ID1 ---
Date of Service
Date of Service: April 30, 2025
Today's Communication
Continue antibiotics.
Assessment / Plan
Left lower extremity cellulitis
- Portal of entry likely chronic left lateral foot wound
- clinically consistent with GP A strep.
Left foot osteomyelitis
Leukocytosis
Fevers
Elevated bilirubin
DM type II
Chronic right lower leg section
Cardiomyopathy
HTN
Sleep apnea
A-fib (Eliquis)
Recommendations:
Wound culture from the left lateral foot wound has grown Pseudomonas, Proteus mirabilis and Strep pyogenes.
- Current cellulitis likely secondary to recovered strep pyogenes.
Continue with cefepime.
Given finding of osteomyelitis, patient will need a 6-week course of therapy.
Case discussed with Podiatry.
Continue with left leg elevation to control edema. LE SOILA placed by Podiatry
Monitor white count and temperature curve. Temp curve overall appears improved.
Monitor blood cultures.
Patient reports MRI of left foot in late fall 2024 at [facility]. Will obtain report.
����������������������������������������������������������
Chief Complaint
-: Cellulitis (LLE)
Subjective / Review of Systems
Review of Systems: No Fever and No Chills
Vital Signs / Physical Exam
Vital Signs
Vital Signs
Temp Pulse Resp BP Pulse Ox
99.1 F 85 18 121/82 94
04/30/25 07:13 04/30/25 08:48 04/30/25 07:13 04/30/25 08:48 04/30/25 08:50
Physical Exam
Constitutional: No Acute Distress, Comfortable and Non-toxic
Eyes: No Conjunctival Hemorrhage and Sclera Anicteric
Pulmonary: Non Labored
Gastrointestinal: Soft, Non Tender, Non Distended and Normal Bowel Sounds
Extremities: Edema (Left lower extremity. Improved from yesterday's exam.), Erythema (Left lower extremity. Improved from yesterday's exam.) and Venous Insufficiency (Bilateral lower extremities)
Musculoskeletal: Negative Joint Swelling
Neurological: Awake and Alert
Psychological: Calm
Objective Data
Lab Data
Lab Results
04/30/25 06:14
04/30/25 06:14
Estimated Creat Clear > 125 ml/min 04/30/25 06:14
Lactic Acid Cancelled 04/26/25 07:12
Total Bilirubin 1.1 mg/dl (0.2-1.3) 04/30/25 06:14
AST 32 U/L (17-59) 04/30/25 06:14
ALT 31 U/L (0-50) 04/30/25 06:14
Alkaline Phosphatase 206 U/L (38-126) H 04/30/25 06:14
Most recent labs reviewed.
Micro Results:
04/25/25 15:10 Blood Culture - Final
Blood/Venous No Growth - Final Report
04/25/25 12:46 Blood Culture - Final
Blood/Venous No Growth - Final Report
04/25/25 16:35 Wound Culture - Final
Ulcer Proteus mirabilis
Pseudomonas aeruginosa
Streptococcus pyogenes
Gram Stain - Final
04/25/25 20:56 MRSA Screen - Final
Nose No Methicillin Resistant Staphylococcus aureus isolated.
04/25/25 12:46 Influenza Types A & B (EMILI) - Final
Nasal Swab Negative for Influenza A & B, NAAT
Negative results must be combined with clinical observations
and patient history.
Nucleic Acid Amplification test (NAAT)performed on the
[employer] platform.
Imaging:
04/30/2025 left foot MRI : Bone marrow edema and enhancement in the base of the fifth metatarsal without T1 hypointense marrow replacement, favored to represent the early changes of acute osteomyelitis given the proximity to the plantar lateral soft
tissue wound. Reactive bone marrow edema is a less likely consideration. Transverse band of bone marrow edema in the cuboid. Uncertain etiology but could be reactive or posttraumatic. Osteomyelitis is considered less likely as this is not in
immediate proximity to the soft tissue ulceration.
04/25/2025 Duplex ultrasound left lower extremity: no evidence of DVT. Multiple lymph nodes present in the left groin, with the largest measuring 3.5 x 2.0 x 2.0. Moderate subcutaneous edema seen within the left calf. Please see full dictation
for additional detail.
04/25/2025 X-ray left foot: plantar and lateral soft tissue air adjacent to the proximal fifth metatarsal bone compatible with history of soft tissue wound. No radiographic findings to suggest osteomyelitis. No evidence of radiopaque foreign body.
Care Review
Plan reviewed with: Physician (Podiatry)
--- NOTE | 2025-04-30 16:17 | W.PN.POD ---
Today's Communication
Today's Communication
LLE dressing were removed and wounds and cellulitis re assessed, Cleansed w/Vashe and redressed with mupirocin ointment and mild compression dressing
Based on MRI findings cw w/ early OM at the [facility]th [facility] (in an area that is not able to be surgically cured) I recommend care home IV and ongoing wound care
He states he had an MRI in Jan at [facility] -comparison may be helpful to determine new vs old changes to bone.
PALAK pt and Dr Londono- pt is agreeable w/ plan
Assessment / Plan
-
NIDDM with DPN and LOPS
Chronic FT diabetic foot wound Left- No OM on plain film- MRI + early OM to the [address] [place] [address] tubercle
--> wound improved with decreased size, continue wound care and follow for change
Cellulitis LLE-some improvement noted - Dr Londono following
-->CX + Proteus, Strep and pseudomonas
FT wounds RLE- healing w/o signs of infection
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
Subjective
Subjective
LLE cellulitis
Objective
Temp Pulse Resp BP Pulse Ox
98.3 F 83 18 129/77 94
04/30/25 15:58 04/30/25 15:58 04/30/25 15:58 04/30/25 15:58 04/30/25 15:58
04/30/25 06:14
04/30/25 06:14
Vital Signs and Lab results were reviewed.
MRI LEFT FOOT -IMPRESSION:
Bone marrow edema and enhancement in the base of the fifth metatarsal without T1 hypointense marrow replacement, favored to represent the early changes of acute osteomyelitis given the proximity to the plantar lateral soft tissue wound. Reactive
bone marrow edema is a less likely consideration.
Review of Systems
Review of Systems
Review of Systems: No Fever, No Chills, No Nausea, No Diarrhea and No Joint Pain
Physical Exam
Physical Exam
General: No Apparent Distress and Conversant
Musculoskeletal: Edema, Left Lower Extrem
Skin: IV Access/Catheter Site, Neurotrophic Ulcer (left lateral foot and heel w/o odor or drainage, decreased size ) and Other (decreased erythema and warmth to the LLE, scaling noted now to LLE w/ reduced cellulitis and edema)
Neuro: AO x 3 and Protective Sensation Absent
Vascular: Pedal Hair Absent and Skin Temperature Warm to Warm
Dorsalis Pedis: Intact
Posterior Tibialis: Diminished
[2025-04-30 16:34] LABS: Glucose - Point of Care 108 mg/dl (70-99)
[2025-04-30 21:37] LABS: Glucose - Point of Care 139 mg/dl (70-99)
[2025-04-30 23:25] VITALS: BP 126/75
[2025-05-01] MEDS: NEURONTIN 300 MG PO (02:12)
[2025-05-01 05:54] VITALS: BMI 35.1
--- NOTE | 2025-05-01 07:35 | W.PN.HOSP.TC ---
Addendum entered and electronically signed by Yanely Merrill MD 05/01/25 14:56:
I saw and evaluated the patient independently. I reviewed and discussed the resident�s note and agree with findings and plan as documented by Dr. Bolaños.
GENERAL: well developed, well nourished, male in no apparent distress
HEENT: NC/AT
HEART: regular rate and rhythm, +S1, +S2
LUNGS : clear to auscultation bilaterally
ABDOM: soft, nontender, nondistended, + bowel sounds
EXT: no cyanosis, clubbing--left leg less red, hot, swollen with palpable left groin lymph node and jamir wrap in place
NEUROLOGIC: grossly intact
sepsis POA due to LLE cellulitis/osteomyelitis-- improvement--apprec ID/podiatry--MRI LLE shows early acute osteomyelitis--US neg for DVT--wound culture with polymicrobials (Proteus, Pseudomonas, Strep)--cont cefepime, with MRI results will need 6
weeks IV ABX--PICC order placed--cont wound care/jamir wraps--lactic acidosis resolved--blood cultures negative--cont eliquis--pain control
L knee swelling-- due to LLE cellulitis--Appreciate ortho input, No acute orthopaedic intervention indicated as physical exam not concerning for septic arthritis
MARY ANN--resolved --s/p IVF--creat at baseline--consider restarting valsartan with parameters
Hyponatremia--? SIADH due to pain--monitor
Chronic CHF s/p ICD without exacerbation--Resumed lasix 40 mg BID on 04/27--daily weight if able
Chronic hypertension--cont meds as able
Type 2 DM--SSI--HGB A1C 6
Paroxysmal A-fib on Eliquis--cont--rate controlled--cont amio
DVT proph-- Eliquis
Code status---full code
hopefully home when IV abx
Original Note:
Today's Communication/Plan
-
Cefepime 2000 mg on day 3.
CBC, CMP
Texted through TT to human services case manager regards his discharge in future along with IV line.
Assessment / Plan
Assessment / Plan
HPI: 54-year-old male with past medical history of CHF s/p ICD, hypertension, NIDDM, HDL, A-fib on Eliquis; p/w progressive redness, swelling and pain of L foot, now to his thigh and groin area.
He has L foot wound and has been following with wound care 3 times per week over the past few months at [facility].
He also c/o generalized weakness, fever and chills. Denies to chest pain, shortness of breath, abdominal pain etc.
# sepsis secondary to POA 2/2 LLE cellulitis:
Vitals: 149/86, RR 16, saturation 99, pain 6/10
On examination: Left side wound dressing present, bilateral rash present until knees, and right side marking present for erythema, swelling previously comparatively not reduced.
Right side 2 bandages present with date written of 04/26.
WBC 19--20.2--20.2--14.5, hemoglobin 14.5--14.2.
Chemistry: Sodium 130, potassium 3 .7 , blood glucose 118 high.
Vancomycin within therapeutic range 10.1
Vascular peripheral ultrasound on 04/17: No evidence of deep venous thrombosis of the left lower extremity.
On 04/25 wound culture collected: Proteus mirabilis, Pseudomonas aeruginosa positive prelim report,
Both organisms sensitive to aztreonam, ciprofloxacin, pip-tazo, tobramycin, meropenem.
Currently however he is receiving, cefepime dosage increased from 1000 to 2000 mg on day 3
MRSA negative
Wound Notes: Dry/intact
On 04/30 MRI lower extremity findings:
Bone marrow edema and enhancement in the base of the fifth metatarsal without T1 hypointense marrow replacement, favored to represent the early changes of acute osteomyelitis given the proximity to the plantar lateral soft tissue wound. Reactive
bone marrow edema is a less likely consideration.
Transverse band of bone marrow edema in the cuboid. Uncertain etiology but could be reactive or posttraumatic. Osteomyelitis is considered less likely as this is not in immediate proximity to the soft tissue ulceration.
04/29 chest x-ray findings:
Placement of a right-sided cardiac conduction device with leads in the right atrium, right ventricle, and coronary sinus. No focal consolidation, pleural effusion, or pneumothorax. The cardiac silhouette is enlarged. Chronic degenerative changes of
the spine.
On 04/28 peripheral study:
RIGHT LOWER EXTREMITY: Arterial duplex examination reveals multiphasic waveforms throughout with no focal velocity elevations to suggest significant stenosis. Incidental finding of a right groin lymph node measuring 1.6 cm x 1.8 cm
LEFT LOWER EXTREMITY: Arterial duplex examination reveals multiphasic waveforms in the common femoral artery, profunda femoral artery and proximal superficial femoral artery. There is a transition to monophasic waveforms throughout the remainder of
the superficial femoral artery and in the popliteal artery. There are no focal velocity elevations to suggest significant stenosis from the common femoral artery through the popliteal artery. Incidental finding of multiple lymph nodes in the left
groin with the largest measuring 2 cm x 1.8 cm.
Patient is sensitive to aztreonam, ciprofloxacin, piperacillin/tazobactam, tobramycin. Positive for Proteus mirabilis, Pseudomonas aeruginosa, Streptococcus pyogenes.
#Wounds cleansed w/vashe and pustules were sterilly drained w/o deroofing, vashe compress x 4 min LLE was redressed w/ mild compression dressing
Rec MRI left foot, ankle and knee once pacer is addressed (turned off for study) Await Cardiology input to eval for abscess and possible osteo based on prev history of abscess in Jan 2025
# Lactic acidosis POA, resolved
s/p 1 L NSS in ED, cautious use of IVF in setting of chronic CHF
blood cultures so far negative
L foot XR negative for osteomyelitis.
LLE venous US negative for DVT
Can follow arterial US for completeness sake (although good palpable dorsalis pedis felt on exam)
s/p bedside I/D 04/26 by bill adjuster, per Dr Stewart, wound appears clean, no further surgery planned
Resumed ARCHITECTURE DRAFTER Eliquis
Pain control with Tylenol and oxycodone. Senokot-S added while on oxycodone
Wound care on board
ID on board
# L knee swelling, 2/2 LLE cellulitis
Appreciate ortho input, No acute orthopaedic intervention indicated as physical exam not concerning for septic arthritis
# Acute kidney injury resolved
s/p 1 L NSS bolus,
SCr 1.6 on admission -> 0.9 today, baseline at 1.1
Cont to hold ARCHITECTURE DRAFTER Valsartan
Monitor SCr
# Hyponatremia
Sodium level 132 today
# Chronic CHF s/p ICD
Cont to hold ARCHITECTURE DRAFTER Lasix, Valsartan
Resumed ARCHITECTURE DRAFTER lasix 40 mg BID on 04/27
daily weight if able
# Chronic hypertension
Cont ARCHITECTURE DRAFTER BB with hold parameter
Cont to hold ARCHITECTURE DRAFTER Valsartan
Resumed ARCHITECTURE DRAFTER lasix 40 mg BID on 04/27
Monitor BP, currently stable
# Psi-wvxndgq-zcrvbkese diabetes mellitus
A1C 6%
cover with ISS
Carb control diet
# Paroxysmal A-fib on Eliquis
Cont ARCHITECTURE DRAFTER BB with hold parameter
Cont ARCHITECTURE DRAFTER Amio
resumed ARCHITECTURE DRAFTER Eliquis
discuss his discharge status with ID, medical center manager regards iv line while on discharge.
DVT ppx: ARCHITECTURE DRAFTER Eliquis
Diabetic diet
Code-full
DW RN
Anticipated Discharge: > 48 hours
Subjective/Interval History
-
Date of Service: May 01, 2025
Overnight the patient's pain got improved at left lower extremity, denied fever, chills, chest pain, palpitation, dizziness.
Explained in detail regards the patient currently WBC count, MRI scan findings and requirement for IV antibiotics.
Objective Data
-
Labs:
Laboratory Results
05/01/25
07:24
WBC Pending
Hgb Pending
Hct Pending
Plt Count Pending
Sodium Pending
Potassium Pending
Chloride Pending
Carbon Dioxide Pending
BUN Pending
Creatinine Pending
Glucose Pending
Calcium Pending
Total Bilirubin Pending
AST Pending
ALT Pending
Alkaline Phosphatase Pending
Vital Signs:
Vital Signs
Temp Pulse Resp BP Pulse Ox
97.8 F 99 20 126/75 94
04/30/25 23:25 04/30/25 23:25 04/30/25 23:25 04/30/25 23:25 04/30/25 23:25
I&O
04/30/25 05/01/25 05/02/25
06:59 06:59 06:59
Intake Total 3780 / 3780 1500 / 1500
Output Total 5950 / 5950 6500 / 6500
Balance -2170 / -2170 -5000 / -5000
Review of Systems
-
History Source: Patient
All other systems: Reviewed and negative
Physical Exam
-
General: Well Developed and Well Nourished
Respiratory: Clear to Auscultation
Cardiac: Regular Rhythm and S1/S2
GI: Soft, Nontender and Nondistended
Genito-urinary: No Costovertebral Tender
Musculoskeletal: No Clubbing and No Cyanosis
Skin: Other (Left lower extremity rash, warm, tenderness present until the knee however much improved when comparing with yesterday observation findings.)
Neuro: AO x 3
Hematologic / Lymphatic: Lymphadenopathy
Psych: Calm
[2025-05-01 07:53] VITALS: BP 136/87
[2025-05-01 08:14] LABS: Glucose - Point of Care 121 mg/dl (70-99)
[2025-05-01] MEDS: NOVOLOG FLEXPEN-LOW RESISTANCE SC ×2 (08:22→13:46)
[2025-05-01 08:28] LABS: Hematocrit 41.2 % (39.0-52.0); Hemoglobin 13.7 g/dL (13.0-18.0); Mean Corp Hgb Conc. 33.3 g/dL (33.0-37.0); Mean Corpuscular Volume 84.4 fL (80.0-94.0); Nucleated Red Blood Cells % 0 % (-); Platelet Count 357 10^3/uL (130-400); Red Cell Dist. Width 14.6 % (11.5-14.5)
[2025-05-01 08:33] LABS: ALT (SGPT) 22 U/L (0-50); AST (SGOT) 23 U/L (17-59); Albumin 3.0 g/dl (3.5-5.0); Alkaline Phosphatase 178 U/L (38-126); Blood Urea Nitrogen 17 mg/dl (9-20); Calcium 8.3 mg/dl (8.4-10.2); Carbon Dioxide 30 mmol/L (22-30); Chloride 105 mmol/L (98-107); Estimated Creatinine Clearance > 125 ml/min; Glucose 113 mg/dl (70-99); Potassium 3.7 mmol/L (3.5-5.1); Sodium 138 mmol/L (135-145); Total Protein 6.8 g/dl (6.3-8.2); eGFR > 60.00
[2025-05-01] MEDS: TOPROL XL 25 MG PO ×2 (08:43→20:11)
[2025-05-01] MEDS: PACERONE 50 MG PO (08:43)
[2025-05-01] MEDS: ELIQUIS 5 MG PO ×2 (08:43→20:10)
[2025-05-01] MEDS: LASIX 40 MG PO ×2 (08:43→17:32)
[2025-05-01] MEDS: COZAAR 50 MG PO (08:44)
[2025-05-01] MEDS: MAXIPIME 2000 MG IV ×3 (08:44→22:59)
[2025-05-01] MEDS: STERILE WATER FOR INJECTION 10 ML IV ×3 (08:44→22:59)
[2025-05-01 09:09] VITALS: BP 136/87
[2025-05-01] MEDS: BACTROBAN 2% OINTMENT 1 APPLIC TOPICAL (11:42)
[2025-05-01 12:47] LABS: Glucose - Point of Care 125 mg/dl (70-99)
--- NOTE | 2025-05-01 13:22 | W.PN.ID1 ---
Date of Service
Date of Service: May 01, 2025
Today's Communication
Continue antibiotics.
Assessment / Plan
Left lower extremity cellulitis
- Portal of entry likely chronic left lateral foot wound
- clinically consistent with GP A strep.
Left foot osteomyelitis
Leukocytosis
Fevers
Elevated bilirubin
DM type II
Chronic right lower leg section
Cardiomyopathy
HTN
Sleep apnea
A-fib (Eliquis)
Recommendations:
Wound culture from the left lateral foot wound has grown Pseudomonas, Proteus mirabilis and Strep pyogenes.
- Current cellulitis likely secondary to recovered strep pyogenes.
Continue with cefepime.
Given finding of osteomyelitis, patient will need a 6-week course of therapy.
Home infusion sheet has been placed on paper chart.
Continue with left leg elevation to control edema. LE JAY placed by Podiatry
Monitor white count and temperature curve. Temp curve overall appears improved.
Patient reports MRI of left foot in late fall 2024 at [facility]. Attempting to obtain report.
����������������������������������������������������������
Chief Complaint
-: Cellulitis (LLE) and Other (Left foot osteomyelitis)
Subjective / Review of Systems
Review of Systems: No Fever and No Chills
Vital Signs / Physical Exam
Vital Signs
Vital Signs
Temp Pulse Resp BP Pulse Ox
98.6 F 102 18 136/87 96
05/01/25 07:53 05/01/25 08:43 05/01/25 07:53 05/01/25 09:09 05/01/25 07:53
Physical Exam
Constitutional: No Acute Distress, Comfortable and Non-toxic
Eyes: No Conjunctival Hemorrhage and Sclera Anicteric
Pulmonary: Non Labored
Gastrointestinal: Soft, Non Tender, Non Distended and Normal Bowel Sounds
Extremities: Edema (Left lower extremity. Improved from yesterday's exam.), Erythema (Left lower extremity. Improved from yesterday's exam.), Venous Insufficiency (Bilateral lower extremities) and Other (Jay wrap in place.)
Musculoskeletal: Negative Joint Swelling
Neurological: Awake and Alert
Psychological: Calm
Objective Data
Lab Data
Lab Results
05/01/25 07:24
05/01/25 07:24
Estimated Creat Clear > 125 ml/min 05/01/25 07:24
Lactic Acid Cancelled 04/26/25 07:12
Total Bilirubin 0.9 mg/dl (0.2-1.3) 05/01/25 07:24
AST 23 U/L (17-59) 05/01/25 07:24
ALT 22 U/L (0-50) 05/01/25 07:24
Alkaline Phosphatase 178 U/L (38-126) H 05/01/25 07:24
Most recent labs reviewed.
Micro Results:
04/25/25 15:10 Blood Culture - Final
Blood/Venous No Growth - Final Report
04/25/25 12:46 Blood Culture - Final
Blood/Venous No Growth - Final Report
04/25/25 16:35 Wound Culture - Final
Ulcer Proteus mirabilis
Pseudomonas aeruginosa
Streptococcus pyogenes
Gram Stain - Final
04/25/25 20:56 MRSA Screen - Final
Nose No Methicillin Resistant Staphylococcus aureus isolated.
04/25/25 12:46 Influenza Types A & B (EMILI) - Final
Nasal Swab Negative for Influenza A & B, NAAT
Negative results must be combined with clinical observations
and patient history.
Nucleic Acid Amplification test (NAAT)performed on the
[employer] platform.
Imaging:
04/30/2025 left foot MRI : Bone marrow edema and enhancement in the base of the fifth metatarsal without T1 hypointense marrow replacement, favored to represent the early changes of acute osteomyelitis given the proximity to the plantar lateral soft
tissue wound. Reactive bone marrow edema is a less likely consideration. Transverse band of bone marrow edema in the cuboid. Uncertain etiology but could be reactive or posttraumatic. Osteomyelitis is considered less likely as this is not in
immediate proximity to the soft tissue ulceration.
04/25/2025 Duplex ultrasound left lower extremity: no evidence of DVT. Multiple lymph nodes present in the left groin, with the largest measuring 3.5 x 2.0 x 2.0. Moderate subcutaneous edema seen within the left calf. Please see full dictation
for additional detail.
04/25/2025 X-ray left foot: plantar and lateral soft tissue air adjacent to the proximal fifth metatarsal bone compatible with history of soft tissue wound. No radiographic findings to suggest osteomyelitis. No evidence of radiopaque foreign body.
[2025-05-01 15:34] VITALS: BP 138/83
--- NOTE | 2025-05-01 16:09 | CM ---
Met with pt and . They are aware of long-term IV ABX. Home IV infusion company referral placed with [facility]. PICC line placement in progress.
Plan: Home with [facility] for long-term ABX
--- NOTE | 2025-05-01 16:32 | VATNOTE ---
attempted right picc placement. unable to advance last 5 cm of catheter even with switching wires and power flushing; notified resident & ordering MD for an IR consult today. IR notified and waiting for pt. PCn Amari aware of plan.
[2025-05-01 16:51] LABS: Glucose - Point of Care 185 mg/dl (70-99)
--- NOTE | 2025-05-01 16:52 | W.PN.UPDATE ---
Update Note
Progress Note Update
# Sepsis due to left lower extremity cellulitis secondary to acute osteomyelitis (MRI finding of bone marrow edema, enhanced in the base of the fifth metatarsal early changes of acute osteomyelitis.):
On 05/01 around afternoon consulted [facility] for IV antibiotics PICC line for 6 weeks antibiotic. Patient vitals are stable.
Discussed the plan with the patient family member Loreto on phone.
# 12/14/2023 last echo indicates left ventricular ejection fraction 30-35%
Stage III diastolic dysfunction suggestive of restrictive filling pattern and increasing filling pressure indicates probably chronic heart failure with reduced ejection fraction.
[2025-05-01] MEDS: NOVOLOG FLEXPEN-LOW RESISTANCE 1 UNITS SC (18:18)
[2025-05-01 21:42] LABS: Glucose - Point of Care 102 mg/dl (70-99)
[2025-05-01 23:34] VITALS: BP 128/82
[2025-05-02 06:00] VITALS: BMI 34.6
--- NOTE | 2025-05-02 07:02 | W.PN.HOSP.TC ---
Addendum entered and electronically signed by Yanely Merrill MD 05/02/25 18:52:
I saw and evaluated the patient independently. I reviewed and discussed the resident�s note and agree with findings and plan as documented by Dr. Bolaños.
GENERAL: well developed, well nourished, male in no apparent distress
HEENT: NC/AT
HEART: regular rate and rhythm, +S1, +S2
LUNGS : clear to auscultation bilaterally
ABDOM: soft, nontender, nondistended, + bowel sounds
EXT: no cyanosis, clubbing--left leg less red, hot, swollen with palpable left groin lymph node and jamir wrap in place
NEUROLOGIC: grossly intact
sepsis POA due to LLE cellulitis/osteomyelitis-- improvement--apprec ID/podiatry--MRI LLE shows early acute osteomyelitis--US neg for DVT--wound culture with polymicrobials (Proteus, Pseudomonas, Strep)--cont cefepime, with MRI results will need 6
weeks IV ABX--s/p PICC --cont wound care/jamir wraps--lactic acidosis resolved--blood cultures negative--cont eliquis--pain control
L knee swelling-- due to LLE cellulitis--Appreciate ortho input, No acute orthopaedic intervention indicated as physical exam not concerning for septic arthritis
MARY ANN--resolved --s/p IVF--creat at baseline--consider restarting valsartan with parameters
Hyponatremia--? SIADH due to pain--monitor
Chronic CHF s/p ICD without exacerbation--Resumed lasix 40 mg BID on 04/27--daily weight if able
Chronic hypertension--cont meds as able
Type 2 DM--SSI--HGB A1C 6
Paroxysmal A-fib on Eliquis--cont--rate controlled--cont amio
DVT proph-- Eliquis
Code status---full code
d/c home
Original Note:
Today's Communication/Plan
-
discuss his discharge status with ID, senior licensing manager regards iv line while on discharge.
Assessment / Plan
Assessment / Plan
HPI: 54-year-old male with past medical history of CHF s/p ICD, hypertension, NIDDM, HDL, A-fib on Eliquis; p/w progressive redness, swelling and pain of L foot, now to his thigh and groin area.
He has L foot wound and has been following with wound care 3 times per week over the past few months at [facility].
He also c/o generalized weakness, fever and chills. Denies to chest pain, shortness of breath, abdominal pain etc.
# sepsis secondary to POA 2/2 LLE cellulitis/ Osteomyelitis:
Vitals: 149/86, RR 16, saturation 99, pain 6/10
On examination: Left side wound dressing present, bilateral rash present until knees, and right side marking present for erythema, swelling previously comparatively not reduced.
Right side 2 bandages present with date written of 04/26.
WBC 19--20.2--20.2--14.5, hemoglobin 14.5--14.2.
Chemistry: Sodium 130, potassium 3 .7 , blood glucose 118 high.
Vancomycin within therapeutic range 10.1
Vascular peripheral ultrasound on 04/17: No evidence of deep venous thrombosis of the left lower extremity.
On 04/25 wound culture collected: Proteus mirabilis, Pseudomonas aeruginosa positive prelim report,
Both organisms sensitive to aztreonam, ciprofloxacin, pip-tazo, tobramycin, meropenem.
Currently however he is receiving, cefepime dosage increased from 1000 to 2000 mg on day 3
MRSA negative
Wound Notes: Dry/intact
On 04/30 MRI lower extremity findings:
Bone marrow edema and enhancement in the base of the fifth metatarsal without T1 hypointense marrow replacement, favored to represent the early changes of acute osteomyelitis given the proximity to the plantar lateral soft tissue wound. Reactive
bone marrow edema is a less likely consideration.
Transverse band of bone marrow edema in the cuboid. Uncertain etiology but could be reactive or posttraumatic. Osteomyelitis is considered less likely as this is not in immediate proximity to the soft tissue ulceration.
04/29 chest x-ray findings:
Placement of a right-sided cardiac conduction device with leads in the right atrium, right ventricle, and coronary sinus. No focal consolidation, pleural effusion, or pneumothorax. The cardiac silhouette is enlarged. Chronic degenerative changes of
the spine.
On 04/28 peripheral study:
RIGHT LOWER EXTREMITY: Arterial duplex examination reveals multiphasic waveforms throughout with no focal velocity elevations to suggest significant stenosis. Incidental finding of a right groin lymph node measuring 1.6 cm x 1.8 cm
LEFT LOWER EXTREMITY: Arterial duplex examination reveals multiphasic waveforms in the common femoral artery, profunda femoral artery and proximal superficial femoral artery. There is a transition to monophasic waveforms throughout the remainder of
the superficial femoral artery and in the popliteal artery. There are no focal velocity elevations to suggest significant stenosis from the common femoral artery through the popliteal artery. Incidental finding of multiple lymph nodes in the left
groin with the largest measuring 2 cm x 1.8 cm.
Patient is sensitive to aztreonam, ciprofloxacin, piperacillin/tazobactam, tobramycin. Positive for Proteus mirabilis, Pseudomonas aeruginosa, Streptococcus pyogenes.
#Wounds cleansed w/vashe and pustules were sterilly drained w/o deroofing, vashe compress x 4 min LLE was redressed w/ mild compression dressing
Rec MRI left foot, ankle and knee once pacer is addressed (turned off for study) Await Cardiology input to eval for abscess and possible osteo based on prev history of abscess in Jan 2025
On 05/02 PICC Repositioning:
1. 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
2. Successful placement of a right-sided midline catheter, with the tip located in the mid subclavian vein. The catheter is required for intravenous antibiotics (not vancomycin), therefore midline access should be adequate for treatment.
# Lactic acidosis POA, resolved
s/p 1 L NSS in ED, cautious use of IVF in setting of chronic CHF
blood cultures so far negative
L foot XR negative for osteomyelitis.
LLE venous US negative for DVT
Can follow arterial US for completeness sake (although good palpable dorsalis pedis felt on exam)
s/p bedside I/D 04/26 by inspector general, per Dr Stewart, wound appears clean, no further surgery planned
Resumed MANAGER CARDIAC CATH Eliquis
Pain control with Tylenol and oxycodone. Senokot-S added while on oxycodone
Wound care on board
ID on board
# L knee swelling, 2/2 LLE cellulitis
Appreciate ortho input, No acute orthopaedic intervention indicated as physical exam not concerning for septic arthritis
# Acute kidney injury resolved
s/p 1 L NSS bolus,
SCr 1.6 on admission -> 0.9 today, baseline at 1.1
Cont to hold MANAGER CARDIAC CATH Valsartan
Monitor SCr
# Hyponatremia
Sodium level 132 today
# Chronic CHF s/p ICD
Cont to hold MANAGER CARDIAC CATH Lasix, Valsartan
Resumed MANAGER CARDIAC CATH lasix 40 mg BID on 04/27
daily weight if able
# Chronic hypertension
Cont MANAGER CARDIAC CATH BB with hold parameter
Cont to hold MANAGER CARDIAC CATH Valsartan
Resumed MANAGER CARDIAC CATH lasix 40 mg BID on 04/27
Monitor BP, currently stable
# Yfe-mprynoo-luhyleyeb diabetes mellitus
A1C 6%
cover with ISS
Carb control diet
# Paroxysmal A-fib on Eliquis
Cont MANAGER CARDIAC CATH BB with hold parameter
Cont MANAGER CARDIAC CATH Amio
resumed MANAGER CARDIAC CATH Eliquis
discuss his discharge status with ID, senior licensing manager regards iv line while on discharge.
DVT ppx: MANAGER CARDIAC CATH Eliquis
Diabetic diet
Code-full
DW RN
Anticipated Discharge: Today
Subjective/Interval History
-
Date of Service: May 02, 2025
Overnight the patient feels well, PICC line placed by IRAD at right side arm after discussing with the patient,
he denied pain, fever, chills, palpitation, dizziness, nausea, vomiting.
Objective Data
-
Labs:
Laboratory Results
05/02/25
06:00
WBC Pending
Hgb Pending
Hct Pending
Plt Count Pending
Sodium Pending
Potassium Pending
Chloride Pending
Carbon Dioxide Pending
BUN Pending
Creatinine Pending
Glucose Pending
Calcium Pending
Total Bilirubin Pending
AST Pending
ALT Pending
Alkaline Phosphatase Pending
Vital Signs:
Vital Signs
Temp Pulse Resp BP Pulse Ox
98.5 F 92 20 128/82 97
05/01/25 23:34 05/01/25 23:34 05/01/25 23:34 05/01/25 23:34 05/01/25 23:34
I&O
05/01/25 05/02/25 05/03/25
06:59 06:59 06:59
Intake Total 1500 / 1500 1860 / 1860
Output Total 6500 / 6500 4700 / 4700
Balance -5000 / -5000 -2840 / -2840
Review of Systems
-
History Source: Patient
All other systems: Reviewed and negative
Physical Exam
-
Respiratory: Clear to Auscultation
Cardiac: Regular Rhythm and S1/S2
GI: Soft, Nontender and Nondistended
Genito-urinary: No Costovertebral Tender
Musculoskeletal: No Clubbing
Skin: Warm and Other (left side lower leg: cellulitis present warm, rash, tenderness improved from yesterday. )
Neuro: AO x 3
Hematologic / Lymphatic: No Lymphadenopathy
Psych: Calm
[2025-05-02 07:10] LABS: Glucose - Point of Care 112 mg/dl (70-99)
[2025-05-02 08:22] VITALS: BP 131/81; BP_SYST 76
[2025-05-02] MEDS: NOVOLOG FLEXPEN-LOW RESISTANCE SC ×2 (09:43→12:41)
[2025-05-02 10:21] LABS: Hematocrit 46.1 % (39.0-52.0); Hemoglobin 15.0 g/dL (13.0-18.0); Mean Corp Hgb Conc. 32.5 g/dL (33.0-37.0); Mean Corpuscular Volume 87.0 fL (80.0-94.0); Nucleated Red Blood Cells % 0 % (-); Platelet Count 399 10^3/uL (130-400); Red Cell Dist. Width 14.6 % (11.5-14.5)
[2025-05-02] MEDS: PACERONE 50 MG PO (10:21)
[2025-05-02] MEDS: TOPROL XL 25 MG PO (10:29)
[2025-05-02] MEDS: ELIQUIS 5 MG PO (10:29)
[2025-05-02] MEDS: COZAAR 50 MG PO (10:29)
[2025-05-02] MEDS: STERILE WATER FOR INJECTION 10 ML IV (10:32)
[2025-05-02] MEDS: MAXIPIME 2000 MG IV (10:33)
[2025-05-02 10:48] LABS: ALT (SGPT) 20 U/L (0-50); AST (SGOT) 25 U/L (17-59); Albumin 3.4 g/dl (3.5-5.0); Alkaline Phosphatase 163 U/L (38-126); Blood Urea Nitrogen 16 mg/dl (9-20); Calcium 8.5 mg/dl (8.4-10.2); Carbon Dioxide 32 mmol/L (22-30); Chloride 100 mmol/L (98-107); Estimated Creatinine Clearance > 125 ml/min; Glucose 103 mg/dl (70-99); Potassium 4.0 mmol/L (3.5-5.1); Sodium 137 mmol/L (135-145); Total Protein 7.8 g/dl (6.3-8.2); eGFR > 60.00
[2025-05-02] MEDS: BACTROBAN 2% OINTMENT 1 APPLIC TOPICAL (10:51)
[2025-05-02] MEDS: LASIX 40 MG PO (10:51)
[2025-05-02 11:55] LABS: Glucose - Point of Care 145 mg/dl (70-99)
--- NOTE | 2025-05-02 12:57 | W.PN.ID1 ---
Date of Service
Date of Service: May 02, 2025
Today's Communication
had midline placed
continue cefepime
dispo planning
Assessment / Plan
Left lower extremity cellulitis
- Portal of entry likely chronic left lateral foot wound
- clinically consistent with GP A strep.
Left foot osteomyelitis
Leukocytosis
Fevers
Elevated bilirubin
DM type II
Chronic right lower leg section
Cardiomyopathy
HTN
Sleep apnea
A-fib (Eliquis)
Recommendations:
Wound culture from the left lateral foot wound has grown Pseudomonas, Proteus mirabilis and Strep pyogenes.
- Current cellulitis likely secondary to recovered strep pyogenes.
Continue with cefepime.
Given finding of osteomyelitis, patient will need a 6-week course of therapy.
Home infusion sheet has been placed on paper chart.
Had midline placed by IR due to R subclavian stensosis at site of pacemaker wires
Continue with left leg elevation to control edema. LE SOILA placed by Podiatry
Monitor white count and temperature curve. Temp curve overall appears improved.
Patient reports MRI of left foot in late fall 2024 at [facility]. Attempting to obtain report.
Follow up with Dr Londono
����������������������������������������������������������
Chief Complaint
-: Cellulitis (LLE) and Other (Left foot osteomyelitis)
Subjective / Review of Systems
afebrile
bp stable
right sided midline placed today with IR
Vital Signs / Physical Exam
Vital Signs
Vital Signs
Temp Pulse Resp BP Pulse Ox
98 F 91 16 140/91 97
05/02/25 08:22 05/02/25 10:21 05/02/25 08:22 05/02/25 10:21 05/02/25 08:22
Physical Exam
Constitutional: No Acute Distress
Cardiovascular: Regular Rate and S1/S2; Negative Murmur or Rub
Pulmonary: Clear and Symmetric; Negative Wheezes or Rales
Gastrointestinal: Soft, Non Tender, Non Distended and Normal Bowel Sounds
Skin: Warm and Dry; Negative Rash or Jaundice
Wound: Other (soila wrap compression in place, proximal erythema resolving)
Lines: Other (midline)
Objective Data
Lab Data
Lab Results
05/02/25 09:58
05/02/25 09:58
Estimated Creat Clear > 125 ml/min 05/02/25 09:58
Lactic Acid Cancelled 04/26/25 07:12
Total Bilirubin 1.2 mg/dl (0.2-1.3) 05/02/25 09:58
AST 25 U/L (17-59) 05/02/25 09:58
ALT 20 U/L (0-50) 05/02/25 09:58
Alkaline Phosphatase 163 U/L (38-126) H 05/02/25 09:58
Most recent labs reviewed.
Micro Results:
04/25/25 15:10 Blood Culture - Final
Blood/Venous No Growth - Final Report
04/25/25 12:46 Blood Culture - Final
Blood/Venous No Growth - Final Report
04/25/25 16:35 Wound Culture - Final
Ulcer Proteus mirabilis
Pseudomonas aeruginosa
Streptococcus pyogenes
Gram Stain - Final
04/25/25 20:56 MRSA Screen - Final
Nose No Methicillin Resistant Staphylococcus aureus isolated.
04/25/25 12:46 Influenza Types A & B (EMILI) - Final
Nasal Swab Negative for Influenza A & B, NAAT
Negative results must be combined with clinical observations
and patient history.
Nucleic Acid Amplification test (NAAT)performed on the
[employer] platform.
Imaging:
04/30/2025 left foot MRI : Bone marrow edema and enhancement in the base of the fifth metatarsal without T1 hypointense marrow replacement, favored to represent the early changes of acute osteomyelitis given the proximity to the plantar lateral soft
tissue wound. Reactive bone marrow edema is a less likely consideration. Transverse band of bone marrow edema in the cuboid. Uncertain etiology but could be reactive or posttraumatic. Osteomyelitis is considered less likely as this is not in
immediate proximity to the soft tissue ulceration.
04/25/2025 Duplex ultrasound left lower extremity: no evidence of DVT. Multiple lymph nodes present in the left groin, with the largest measuring 3.5 x 2.0 x 2.0. Moderate subcutaneous edema seen within the left calf. Please see full dictation
for additional detail.
04/25/2025 X-ray left foot: plantar and lateral soft tissue air adjacent to the proximal fifth metatarsal bone compatible with history of soft tissue wound. No radiographic findings to suggest osteomyelitis. No evidence of radiopaque foreign body.
[2025-05-02 15:00] VITALS: BP 100/72
--- NOTE | 2025-05-02 16:54 | W.PN.POD ---
Today's Communication
Today's Communication
Patient will proceed w/ course of IV abt and ongoing wound care as out pt w/ [facility] wound ctr and his previous Podiatric surgeon.
Orders reviewed on DC
Recommend follow up xrays left foot in 4 weeks
Will sign off
Assessment / Plan
-
NIDDM with DPN and LOPS
Chronic FT diabetic foot wound Left- No OM on plain film- MRI + early OM to the 5th met tubercle
--> wound improved with decreased size, continue wound care and follow for change
Cellulitis LLE-some improvement noted - Dr Londono following
-->CX + Proteus, Strep and pseudomonas
FT wounds RLE- healing w/o signs of infection
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
Subjective
Subjective
LLE cellulitis
Objective
Temp Pulse Resp BP Pulse Ox
98.2 F 82 16 100/72 95
05/02/25 15:00 05/02/25 15:00 05/02/25 15:00 05/02/25 15:00 05/02/25 15:00
05/02/25 09:58
05/02/25 09:58
Vital Signs and Lab results were reviewed.
Inspection: Cellulitis (LLE has imroved with significant reduction in edema and erythema LLE)
Review of Systems
Review of Systems
Review of Systems: No Fever, No Chills, No Nausea, No Diarrhea and No Joint Pain
Physical Exam
Physical Exam
General: No Apparent Distress and Conversant
Musculoskeletal: Edema, Left Lower Extrem
Skin: Neurotrophic Ulcer (left lateral foot and heel w/o odor or drainage, decreased size ) and Other ( LLE w/ reduced cellulitis and edema)
Neuro: AO x 3 and Protective Sensation Absent
Vascular: Pedal Hair Absent and Skin Temperature Warm to Warm
Dorsalis Pedis: Intact
Posterior Tibialis: Diminished
--- NOTE | 2025-05-02 17:02 | CM ---
Patient for discharge home with [facility]. Patient in room with Gee from [facility]. CM faxed to [facility] report re Picc/Midline and per Gee patient currently has midline and will need to have line changed in 28 days. Patient aware per
[facility]. Patient for discharge home today with family support. CM will continue to follow for discharge planning needs.
Plan; home with [facility].
--- NOTE | 2025-05-02 17:10 | W.DCSUMMARY ---
Addendum entered and electronically signed by Yanely Merrill MD 05/03/25 07:01:
Read, reviewed, and agree. See same day progress note for additional details. Time spent coordinating care, DC planning, review of DC plan of care with resident, transition of care, review of records in EMR, med rec, consults, notes, d/w
consultants, nursing, family, and CM = 40 minutes
Original Note:
Discharge Summary
Discharge Data
Date of Admission: 04/25/25
Date of Discharge: 05/02/25
-
Pending Results: No
Hospital Course
Discharging Physician : Dr Yanely Merrill MD
Dr Genesis Bolaños MD
Disposition : Home with home care
Primary care physician : Dr Tristen Arevalo
Principal Discharge diagnosis : Sepsis at point of admission due to left lower extremity cellulitis/osteomyelitis. (See the section of hospital course for further details)
Chronic Discharge diagnosis :
# Paroxysmal A-fib continued with Eliquis, maintained heart rate, rhythm with metoprolol succinate(with holding parameters), amiodarone.
# Acute kidney injury resolved with normal saline bolus, monitor serum creatinine at the time of admission was 1.6 with a baseline 1.1, at the time of discharge 0.7.
# Chronic hypertension continued with home medications
# Chronic congestive heart failure s/p ICD without exacerbation continued with Lasix 40 mg twice a day, with monitoring of daily , input and output.
# Insulin required type 2 diabetes mellitus managed with insulin sliding scale, his home medication Ozempic, with blood glucose monitoring regularly.
# Chronic hyponatremia monitored with basic metabolic panel and corrected with normal saline.
Hospital Course :
On 04/25 54-year-old male with a past medical history of congestive heart failure s/p ICD, hypertension, [id number] diabetes mellitus, hyperlipidemia, A-fib on Eliquis presented to the ED for the complaint of recurrent left foot wound and
he had this before and underwent treatment with wound care 3 times per week at [facility]. However it was nonhealing and admitted here at [facility]. When the patient got admitted his left foot wound was diagnosed as sepsis
and started on IV fluids along with antibiotics vancomycin, cefepime. Influenza, COVID, MRSA negative. Blood cultures, CBC, CMP, lactic acid levels were monitored showed high WBC count of 23.7, wound care, reclaimer, ID, diabetic provider
consulted. At the admission foot x-ray showed soft tissue air adjustment to the proximal fifth metatarsal bone, compatible with the soft tissues wound. Followed by peripheral vascular ultrasound taken to rule out deep vein thrombosis of the left
lower extremity and the impression was no evident for deep vein thrombosis. Ultrasound peripheral arterial lower extremity was negative for peripheral arterial insufficiency. Patient was followed up with blood culture-demonstrated positive for
Proteus mirabilis, Pseudomonas aeruginosa, Streptococcus pyogenes. Patient's antibiotics was switched from vancomycin, cefepime to cefepime 1 g IV. Leukocytosis count monitored every day showed the improvement at the time of discharge: WBC point
of admission: 23.7--19--20.2--13.7(at the time of discharge), patient's creatinine 0.7 baseline, potassium, sodium managed to the baseline. Wound dressing, reclaimer follow-up done throughout the course of hospitalization. Lower extremity MRI on
04/30 showed acute osteomyelitis in the base of the fifth metatarsal with a diagnosis of sepsis secondary to acute osteomyelitis. With ID recommendation cefepime 1 g IV dosage increased to two 2 g IV dosage with 6 weeks to complete the antibiotic
course. Plan was discussed with the patient, patient's contact(girlfriend) through the phone. Architectural Modeler consulted and and gave clearance for the PICC line and mentioned his s/p ICD is safe for the PICC line . PICC line placed by interventional
radiologist at the right side midline catheter. Patient was stable at the time of discharge with the discharge recommendation of follow-up with primary care physician within a week of discharge for his BMP, CBC. Follow-up with reclaimer within a
week of discharge. Patient was on apixaban 5 mg twice a day as DVT prophylaxis, with diabetic diet, with full code and disposition status Home along with visiting nurse home care. Explained in detail regards his treatment plan while on discharge.
IMPORTANT:
If your symptoms worsen when you get home, go to the Emergency Room if you cannot reach a doctor, or call 911
Important imaging findings :
On 04/30 MRI lower extremity findings:
Bone marrow edema and enhancement in the base of the fifth metatarsal without T1 hypointense marrow replacement, favored to represent the early changes of acute osteomyelitis given the proximity to the plantar lateral soft tissue wound. Reactive
bone marrow edema is a less likely consideration.
Transverse band of bone marrow edema in the cuboid. Uncertain etiology but could be reactive or posttraumatic. Osteomyelitis is considered less likely as this is not in immediate proximity to the soft tissue ulceration.
04/29 chest x-ray findings:
Placement of a right-sided cardiac conduction device with leads in the right atrium, right ventricle, and coronary sinus. No focal consolidation, pleural effusion, or pneumothorax. The cardiac silhouette is enlarged. Chronic degenerative changes of
the spine.
On 04/28 peripheral study:
RIGHT LOWER EXTREMITY: Arterial duplex examination reveals multiphasic waveforms throughout with no focal velocity elevations to suggest significant stenosis. Incidental finding of a right groin lymph node measuring 1.6 cm x 1.8 cm
LEFT LOWER EXTREMITY: Arterial duplex examination reveals multiphasic waveforms in the common femoral artery, profunda femoral artery and proximal superficial femoral artery. There is a transition to monophasic waveforms throughout the remainder of
the superficial femoral artery and in the popliteal artery. There are no focal velocity elevations to suggest significant stenosis from the common femoral artery through the popliteal artery. Incidental finding of multiple lymph nodes in the left
groin with the largest measuring 2 cm x 1.8 cm.
On 04/25 peripheral vascular ultrasound imaging:
No evidence of deep venous thrombosis of the left lower extremity.
# Follow-up with reclaimer within 4 weeks for repeat foot x-ray.
Procedure findings :
On 05/02 PICC Repositioning:
1. 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
2. Successful placement of a right-sided midline catheter, with the tip located in the mid subclavian vein. The catheter is required for intravenous antibiotics (not vancomycin), therefore midline access should be adequate for treatment.
Discharge Plan
-
Patient Disposition: Home with Home Care
Discharge Diagnosis/Procedures: Sepsis secondary to left lower extremity cellulitis/osteomyelitis, acute kidney injury resolved, chronic congestive heart failure s/p ICD, type 2 diabetes mellitus, chronic hypertension, paroxysmal A-fib on Eliquis
resolved,
Condition: Fair
Diet: No restrictions
Activity: No restrictions
Driving Restrictions: As prior to admission
Bathing Restrictions: None
Blood Work: cbc, cmp
Activity Restrictions/Additional Instructions:
Wound Care Instructions
LLE - Cleanse LLE wounds with Vashe, pat dry apply adaptic and cover with silver alginate, ABD pads, wrap w/Kerlix and 6 inch jamir from base of toes to just below knee daily
04/26 RLE - Cleanse with NSS, pat dry and cover with adaptic and bordered foam dressing Q M-W-F
04/26 L LATERAL FOOT & L HEEL - Vashe compress x5 minutes, cleanse, mupirocin ointment and apply border foam.
Activity and weight bear restrictions as per reclaimer's instructions.
R knee high Tubigrip as tolerated; re apply daily.
Elevate heels off bed with pillows.
Follow up with your cad specialist.
Instructions: Osteomyelitis in adults, Wound care - ED (DC), BLOOD PRESSURE
Referrals:
Tristen Arevalo DO [Family Provider, Family Practice]
Sydney Stewart DPM [Active, Podiatry]
Additional Discharge Medication Instructions: - Continue to take cefazoline twice a day until 06/09/25 to complete 6 weeks course of antibiotics
- Follow the wound instruction at home
- Follow up with with family doctor within a week of discharge for the blood work CBC, CMP
- Script mentioned the antibiotic dosage.
Prescriptions:
New
Chloraseptic Sore Throat 6-10 mg Lozenge
1 luz elena PO Q4HPRN PRN (Reason: throat irritation) 15 Days Qty: 10 0RF
mupirocin 2 % Ointment
1 applic topical DAILY 10 Days Qty: 22 0RF
gabapentin 100 mg Capsule
300 mg PO DAILYPRN PRN (Reason: neuropathic pain) Qty: 90 0RF
acetaminophen 325 mg Tablet
650 mg PO Q4HPRN PRN (Reason: RODRIGUEZ/mild pain/temp > 100.4 F) Qty: 30 0RF
cefepime 2 gram recon soln
2 g IV Q12H
Continued
spironolactone 25 MG tablet
25 mg PO DAILY
multivitamin with folic acid [Tab-A-Ellie] 1 TABLET tablet
1 tab PO DAILY
furosemide 40 MG tablet
40 mg PO BID@0800,1600 Qty: 60 11RF
Rx Instructions:
Increase Lasix to 40 mg twice a day
Eliquis 5 MG tablet
5 mg PO BID Qty: 60 11RF
gabapentin 300 mg Capsule
300 mg PO DAILY PRN (Reason: pain)
amiodarone [Pacerone] 200 MG tablet
50 mg PO DAILY
Rx Instructions:
Take amiodarone 200 mg twice a day for 1 month then reduce to 200 mg daily thereafter
metoprolol succinate 100 MG tablet extended release 24 hr
25 mg PO DAILY
Rx Instructions:
Increase Toprol XL (metoprolol succinate) to 100 mg (two 50 mg tablets) once a day
losartan 50 mg Tablet
50 mg PO DAILY Qty: 0 0RF
metoprolol tartrate 50 MG tablet
25 mg PO 2XD Qty: 0 0RF
Ozempic 0.25 mg or 0.5 mg (2 mg/3 mL) Pen Injector
0.25 mg SC QWEEK Qty: 0 0RF
Rx Instructions:
for 4 weeks
Discontinued
Diovan 160 MG capsule
160 mg PO DAILY Qty: 30 11RF
Rx Instructions:
Increase Diovan to 160 mg (two 80 mg tablets) once a day
Discharge Orders:
Discharge Patient (As Directed); Ordered 05/02/25
Ordered By: Genesis Bolaños
Discharge Date and Time
Discharge Date/Time: 05/02/25 16:59
Print Language: TELUGU
== END 2025-05-02 16:59 | disposition home or self-care (01) | DRG 872 ==
LOC: 4 EAST ACU 17:15
PROVIDERS: Emergency Medicine; Radiology Vascular & Interventional Radiology; ADMITTING PHYSICIAN Internal Medicine; ATTENDING PHYSICIAN Internal Medicine; CONSULT PHYSICIAN Internal Medicine Infectious Disease; CONSULT PHYSICIAN Podiatrist Foot & Ankle Surgery; CONSULT PHYSICIAN Student in an Organized Health Care Education/Training Program; EMERGENCY PHYSICIAN Emergency Medicine; FAMILY PHYSICIAN Family Medicine
PROC: B548ZZA Ultrasonography of Superior Vena Cava, Guidance (ICD-10-PCS; 2025-05-01)
PROC: 02HV33Z Insertion of Infusion Device into Superior Vena Cava, Percutaneous Approach (ICD-10-PCS; 2025-05-01)
PROC: 02PYX3Z Removal of Infusion Device from Great Vessel, External Approach (ICD-10-PCS; 2025-05-02)
PROC: B5181ZA Fluoroscopy of Superior Vena Cava using Low Osmolar Contrast, Guidance (ICD-10-PCS; 2025-05-02)
DX: A41.9 Sepsis, unspecified organism (principal); L03.116 Cellulitis of left lower limb; E87.20 Acidosis, unspecified; N17.9 Acute kidney failure, unspecified; E87.1 Hypo-osmolality and hyponatremia; I42.8 Other cardiomyopathies; I82.B11 Acute embolism and thrombosis of right subclavian vein; L97.421 Non-pressure chronic ulcer of left heel and midfoot limited to breakdown of skin; R65.20 Severe sepsis without septic shock; I48.0 Paroxysmal atrial fibrillation; Z79.01 Long term (current) use of anticoagulants; I11.0 Hypertensive heart disease with heart failure; Z95.810 Presence of automatic (implantable) cardiac defibrillator; I50.9 Heart failure, unspecified; E78.5 Hyperlipidemia, unspecified; E11.42 Type 2 diabetes mellitus with diabetic polyneuropathy; F17.290 Nicotine dependence, other tobacco product, uncomplicated; Z79.899 Other long term (current) drug therapy; B96.4 Proteus (mirabilis) (morganii) as the cause of diseases classified elsewhere; G47.30 Sleep apnea, unspecified; I87.2 Venous insufficiency (chronic) (peripheral); Z11.52 Encounter for screening for COVID-19
CPT/HCPCS: 36584; 71046; 73630; 73720; 80048; 80053; 80202; 82962; 83036; 83605; 83735; 85025; 87040; 87070; 87071; 87077; 87147; 87186; 87205; 87502; 87811; 93925; 93971; 96365; 96366; 97162; 97530; 99284; A9585

== ENCOUNTER → 2025-05-27 10:12 | Outpatient (REF) | payer OTHER, SELFPAY ==
[2025-05-27 10:32] VITALS: BP 156/84; BP_SYST 89
== END ==
LOC: RADI 10:12
PROVIDERS: ATTENDING PHYSICIAN Internal Medicine Infectious Disease; FAMILY PHYSICIAN Family Medicine
DX: Z45.2 Encounter for adjustment and management of vascular access device (principal)
CPT/HCPCS: 36584; C1751; C1769